=== PATIENT | female | born 1965 | race Caucasian/White ===

== ENCOUNTER 2020-05-15 14:15 | Outpatient (CLI) | payer OTHER, SELFPAY ==
[2020-05-15 14:30] LABS: Basophils Absolute Auto 0.1 K/mm3 (0.0-0.1); Basophils Percent Auto 1.1 % (0.2-1.2); Eosinophils Absolute Auto 0.2 K/mm3 (0-0.3); Eosinophils Percent Auto 2.4 % (0-4.4); Hematocrit 38.3 % (37.0-47.0); Hemoglobin 12.9 g/dL (12.0-15.0); Immature Granulocyte Absolute 0.01 K/mm3 (0.00-0.031); Immature Granulocyte Percent A 0.1 % (0-0.5); Lymphocytes Absolute Auto 2.51 K/mm3 (0.9-3.2); Lymphocytes Percent Auto 35.9 % (18.3-44.2); Mean Corpuscular HGB Conc 33.7 g/dl (32-36); Mean Corpuscular Hemoglobin 31.9 pg (26-34); Mean Corpuscular Volume 94.8 fl (80-100); Mean Platelet Volume 9.1 fl (7.4-10.4); Monocytes Absolute Auto 0.6 K/mm3 (0.1-0.6); Monocytes Percent Auto 8.7 % (2.6-8.5); Neutrophils Absolute Auto 3.6 K/mm3 (1.3-6.7); Neutrophils Percent Auto 51.8 % (45.5-73.1); Platelet Count Result 239 k/mm3 (150-375); Red Blood Count 4.04 M/mm3 (4.2-5.4); Red Cell Distribution Width 12.7 % (11.5-14.5)
[2020-05-15 17:21] LABS: Iron 119 ug/dL (37-170)
[2020-05-15 17:28] LABS: Alanine Aminotransferase 15 U/L (4-35); Albumin Level 4.5 g/dL (3.5-5.1); Alkaline Phosphatase 79 U/L (38-126); Aspartate Amino Transferase 27 U/L (14-36); Bilirubin,Total 0.5 mg/dL (0.2-1.3); Blood Urea Nitrogen 14 mg/dL (7-17); Calcium 9.3 mg/dL (8.4-10.2); Carbon Dioxide 23 mmol/L (22-30); Chloride 107 mmol/L (98-107); Estimated Glomerular Filt Rate > 60; Glucose 114 mg/dL (65-105); Potassium 3.5 mmol/L (3.4-5.0); Sodium 137 mmol/L (137-145)
[2020-05-15 17:29] LABS: Erythrocyte Sedimentation Rate 17 mm/hr (0-20)
[2020-05-15 17:30] LABS: Percent Iron Saturation 46 % (20-50)
== END 2020-05-15 14:16 | disposition home or self-care (01) ==
PROVIDERS: PCP Family Medicine; Visit Provider Internal Medicine Hematology & Oncology
DX: R53.83 Other fatigue (principal); R79.89 Other specified abnormal findings of blood chemistry
CPT/HCPCS: 36415; 80053; 82607; 82728; 83540; 83550; 85025; 85652; 86140

== ENCOUNTER 2020-08-21 10:50 | Outpatient (CLI) | payer OTHER, SELFPAY ==
[2020-08-21 11:15] LABS: Basophils Absolute Auto 0.1 K/mm3 (0.0-0.1); Basophils Percent Auto 1.5 % (0.2-1.2); Eosinophils Absolute Auto 0.2 K/mm3 (0-0.3); Eosinophils Percent Auto 2.8 % (0-4.4); Hematocrit 40.2 % (37.0-47.0); Hemoglobin 13.7 g/dL (12.0-15.0); Immature Granulocyte Absolute 0.01 K/mm3 (0.00-0.031); Immature Granulocyte Percent A 0.2 % (0-0.5); Lymphocytes Absolute Auto 2.73 K/mm3 (0.9-3.2); Lymphocytes Percent Auto 50.9 % (18.3-44.2); Mean Corpuscular HGB Conc 34.1 g/dl (32-36); Mean Corpuscular Hemoglobin 31.9 pg (26-34); Mean Corpuscular Volume 93.5 fl (80-100); Mean Platelet Volume 8.8 fl (7.4-10.4); Monocytes Absolute Auto 0.5 K/mm3 (0.1-0.6); Neutrophils Absolute Auto 1.9 K/mm3 (1.3-6.7); Neutrophils Percent Auto 35.6 % (45.5-73.1); Platelet Count Result 266 k/mm3 (150-375); Red Cell Distribution Width 12.3 % (11.5-14.5); White Blood Count 5.4 K/mm3 (4.5-10.0)
[2020-08-21 11:19] LABS: Blood Urea Nitrogen 12 mg/dL (8-26); Carbon Dioxide 25 mmol/L (22-30); Chloride 103 mmol/L (98-109); Estimated Glomerular Filt Rate > 60; Glucose 96 mg/dL (70-105); Potassium 4.3 mmol/L (3.5-4.9); Sodium 140 mmol/L (138-146)
[2020-08-21 11:20] LABS: Atypical Lymphocytes Present; Platelet Estimate Adequate (Adequate)
[2020-08-21 16:48] LABS: Alanine Aminotransferase 14 U/L (4-35); Albumin Level 4.3 g/dL (3.5-5.1); Alkaline Phosphatase 78 U/L (38-126); Anion Gap 7 mmol/L (8-16); Aspartate Amino Transferase 22 U/L (14-36); Bilirubin,Total 0.2 mg/dL (0.2-1.3); Blood Urea Nitrogen 12 mg/dL (7-17); Calcium 9.4 mg/dL (8.4-10.2); Carbon Dioxide 26 mmol/L (22-30); Chloride 105 mmol/L (98-107); Estimated Glomerular Filt Rate > 60; Glucose 99 mg/dL (65-105); Potassium 4.5 mmol/L (3.4-5.0); Sodium 138 mmol/L (137-145)
[2020-08-21 18:20] LABS: Folic Acid 14.6 ng/mL (2.76->20)
== END 2020-08-21 10:51 | disposition home or self-care (01) ==
PROVIDERS: PCP Family Medicine; Visit Provider Internal Medicine Hematology & Oncology
DX: R53.82 Chronic fatigue, unspecified (principal); R79.89 Other specified abnormal findings of blood chemistry
CPT/HCPCS: 36415; 80048; 80053; 82607; 82746; 85025

== ENCOUNTER 2020-09-04 07:39 | Outpatient (CLI) | payer OTHER, SELFPAY ==
--- NOTE | 2020-09-04 | ECHO_ITS ---
Patient Info Name: Keturah Nickerson Age: 55 years : 1965 Gender: Female Ht: 63 in Wt: 130 lbs BSA: 1.63 m2 HR: 61 bpm BP: 158 / 101 mmHg Heart Rhythm: Sinus Rhythm Technical Quality: Good Exam Date: 09/04/2020 9:08 AM Exam Location: [facility] Patient Status: Outpatient Admit Date: 09/04/2020 Staff Ordering Physician: Montse Torre Air Conditioning Unit Assembler: Lianet iGron RDCS Attending Provider: Montse Torre Referring Physician: Nicho ARNETT; Exam Type: CA echo doppler color flow Study Info Indications - chronic fatiquie Complete two-dimensional, color flow and Doppler transthoracic echocardiogram is performed. Strain analysis performed. Summary 1. Complete two-dimensional, color flow and Doppler transthoracic echocardiogram is performed. 2. Strain analysis performed. 3. Left ventricular chamber dimension is normal. 4. Left ventricular systolic function is normal, estimated at 60-65%. 5. There is no increased left ventricular wall thickness. 6. The left ventricular diastolic function is normal. 7. Global longitudinal strain is normal at -20 %. 8. There is mild tricuspid valve regurgitation. Left Ventricle Left ventricular chamber dimension is normal. Left ventricular systolic function is normal, estimated at 60-65%. There is no increased left ventricular wall thickness. The left ventricular diastolic function is normal. Global longitudinal strain is normal at -20 %. Right Ventricle Right ventricular chamber dimension is normal. Right ventricular systolic function is normal. Left Atria Left atrial chamber dimension is normal. Right Atria Right atrial chamber dimension is normal. Atrial Septum Intact interatrial septum visualized by color flow imaging. Aortic Valve The aortic valve is not well visualized. There is no aortic valve sclerosis. There is no aortic valve stenosis. There is trace aortic valve regurgitation. Pulmonic Valve The pulmonic valve is normal. There is no pulmonic valve stenosis. There is trace pulmonic regurgitation. Mitral Valve The mitral valve has normal leaflets. There is no mitral valve stenosis. There is trace mitral valve regurgitation. Tricuspid Valve The tricuspid valve leaflets are normal. There is no significant tricuspid valve stenosis. There is mild tricuspid valve regurgitation. No pulmonary hypertension, estimated pulmonary arterial systolic pressure is 28 mmHg. Pericardium/Pleural The pericardium appears normal. There is no pericardial effusion. Aorta The aortic root size at the sinus of Valsalva is normal. Left Ventricular Outflow Tract Name Value Normal LVOT 2D LVOT Diameter 2.0 cm LVOT Doppler LVOT Peak Gradient 5 mmHg LVOT Mean Gradient 2 mmHg LVOT VTI 22 cm LVOT VTI/AV VTI Ratio 1.1 LVOT Stroke Volume 70 ml LVOT CO 13.7 l/min LVOT CI 8.4 l/min/m2
--- NOTE | ~2020-09-04 | US_ITS ---
EXAMINATION: US soft tissue head and neck DATE: 09/04/2020 08:53 INDICATION: Cervical lymphadenopathy. Thyroid nodules. TECHNIQUE: Multiple ultrasound images of the thyroid were obtained. COMPARISON: Thyroid ultrasound 03/22/2019 FINDINGS: The right thyroid lobe measures 4.7 x 1.4 x 1.6 cm. The left thyroid lobe measures 4.3 x 2.0 x 1.5 c m. There are 2 mm and 4 mm nodules in the thyroid, likely not clinically significant. Normal submand ibular lymph nodes are noted. There is no abnormal mass or lymphadenopathy in the posterior neck in t he patient's area of concern. IMPRESSION: 1. No abnormal mass or lymphadenopathy in posterior neck in the patient's area of concern. 2. Small thyroid nodules, likely not clinically significant. No follow-up is needed. Reviewed, dictated and finalized at location A. ISHING EDITOR IMPRESSION: 1. No abnormal mass or lymphadenopathy in posterior neck in the patient's area of concern. 2. Small thyroid nodules, likely not clinically significant. No follow-up is ne eded.
== END 2020-09-04 07:40 | disposition home or self-care (01) ==
LOC: ANHIMG 07:50
PROVIDERS: PCP Family Medicine; Visit Provider Nurse Practitioner Adult Health
DX: R53.82 Chronic fatigue, unspecified (principal); R59.0 Localized enlarged lymph nodes; E04.2 Nontoxic multinodular goiter
CPT/HCPCS: 76536; 93306

== ENCOUNTER 2020-11-07 13:40 | Emergency (ER) | payer OTHER, SELFPAY ==
[2020-11-07 13:56] VITALS: BP 148/95; PULSE 74; RESP 16; TEMP 36.5; O2SAT 100
--- NOTE | 2020-11-07 14:12 | ED.FEMALEGU ---
HPI - Female Genitourinary General Chief complaint: Urogenital-Female Stated complaint: POS UTI symptoms Time Seen by Provider: 11/07/20 14:12 Source: patient and RN notes reviewed Mode of arrival: ambulatory Limitations: no limitations History of Present Illness HPI Narrative: 55-year-old female who presents to [facility] with complaints of about 1 week duration of urinary burning, frequency, urgency, dribbling of urine with foul odor. Patient states that she has frequent urinary tract infections and usually takes Macrobid for her infections which is usually effective. Patient states that she usually shows some blood in her urine when she has UTI and she has seen urologist in the past due to having blood in her urine. Patient denies any nausea or vomiting or any vaginal drainage or itching in perineal area, denies any known fevers or chills. MD elicited complaint: dysuria, UTI and flank pain Pertinent past history: recurrent UTIs and hysterectomy Onset (ago): week(s) (1) Location of symptoms: urethra and flank (bilateral) Female Urogenital Radiation: L Flank and R Flank Severity scale (1-10): 4 Quality of pain: cramping and aching Consistency: constant Vaginal discharge: none Vaginal bleeding: none Urinary symptoms: Dysuria, Hematuria and Foul Smelling Urine Exacerbating factors: urination Relieving factors: none Associated symptoms: back pain (bilateral flank pain) Treatment prior to arrival: none Sexual activity: Yes Possible : postmenopausal Related Data Home Medications Medication Instructions Recorded Confirmed celecoxib mg 11/07/20 citalopram mg 11/07/20 hydrocodone-acetaminophen 11/07/20 prednisone 11/07/20 Allergies Allergy/AdvReac Type Severity Reaction Status Date / Time No Known Allergies Allergy Verified 11/07/20 14:09 Review of Systems Review of Systems: Narrative: CONSTITUTIONAL: Denies fever, chills, or sweats. EYES: Denies visual changes, redness, or discharge. ENT: Denies rhinorrhea, congestion, sore throat, or otalgia. CARDIOVASCULAR: Denies chest pain, palpitations, or edema. RESPIRATORY: Denies cough or dyspnea. GASTROINTESTINAL: Denies abdominal pain, nausea, vomiting, or diarrhea. GENITOURINARY: Positive dysuria or hematuria. and flank pain, frequency and urgency SKIN: Denies rash or itching. MUSCULOSKELETAL: Denies back pain, joint pain, or myalgia. NEUROLOGIC: Denies headache, numbness, or weakness. PSYCHIATRIC: Denies anxiety or depression. All systems reviewed & are unremarkable except as noted in HPI and below PMFSH Past Medical History Medical History (Updated 11/07/20 @ 15:16 by Lashay Mathews NP) ADD (attention deficit disorder) Adrenal insufficiency Rheumatoid arthritis UTI (urinary tract infection) Surgical History Surgical History (Updated 11/07/20 @ 14:30 by Lashay Mathews NP) History of arthroscopic surgery of shoulder left History of hysterectomy Social History Social History (Updated 11/07/20 @ 14:31 by Lashay Mathews NP) Smoking packs per day: 1 Smoking cigarettes per day: 20.0 Years smoked: 40 Smoking pack-years: 40.00 Smoking status: Current every day smoker Tobacco type: cigarettes Alcohol intake: current Substance use: current Substance use type: opiates Last use: RA pain Living arrangements: with family Gender identity (if verbalized by the patient): Female Comments At time of signature, agree with nursing past medical, surgical, social history. There is no relevant family history pertinent to the presenting complaint Exam Narrative: Exam Narrative: GENERAL: Well-appearing, well-nourished, and in no acute distress. HEAD: Normocephalic, atraumatic. EYES: PERRLA and EOMI. ENT: Nares clear, no rhinorrhea or epistaxis. Mucous membranes moist.TM's normal with good light reflex, throat pink with no exudates or lesions no tonsil enlargement NECK: Supple. no lymphadenopathy CHEST: Clear to auscultation
--- NOTE | 2020-11-07 14:45 | PC.NURSE ---
UPON FURTHER EVALUATION, PT STATES SHE HAS ADRENAL INSUFFICIENCY,NOT RENAL.
== END 2020-11-07 14:38 | disposition home or self-care (01) ==
PROVIDERS: Emergency Provider Registered Nurse; PCP Family Medicine
DX: N39.0 Urinary tract infection, site not specified (principal); F17.210 Nicotine dependence, cigarettes, uncomplicated; M06.9 Rheumatoid arthritis, unspecified
CPT/HCPCS: 81003; 87086; 99213; G0463

== ENCOUNTER 2021-07-13 01:53 | Day surgery (SDC) | payer OTHER, SELFPAY ==
[2021-07-05 09:32] VITALS: BMI 23.9
--- NOTE | 2021-07-12 11:29 | PM.HPGS ---
History of Present Illness History of Present Illness Consent: Risks, benefits, and alternatives have been discussed and questions answered. Patient agrees to proceed with procedure. Chief complaint: rectal pain and constipation Narrative: Keturah Nickerson is a 56 year old female who has had a change in bowel habits. Review of Systems Review of Systems: All systems reviewed & are unremarkable except as noted in HPI and below PMFSH Past Medical History Medical History ADD (attention deficit disorder) Adrenal insufficiency Rheumatoid arthritis UTI (urinary tract infection) Surgical History Surgical History History of arthroscopic surgery of shoulder left History of hysterectomy Social History Social History Smoking packs per day: 1.5 Smoking cigarettes per day: 30.0 Years smoked: 30 Smoking pack-years: 45.00 Smoking status: Current every day smoker Substance use type: does not use Meds Home Medications and Allergies Home Medications Medication Instructions Recorded Confirmed Type adalimumab [Humira(CF) Pen] 40 mg SUBCUT WEEKLY 07/05/21 07/05/21 History alendronate [Fosamax] 70 mg PO DAILY 07/05/21 07/05/21 History dextroamphetamine-amphetamine 30 mg PO DAILY 07/05/21 07/05/21 History [Adderall] hydrocodone-acetaminophen 7.5 - 325 tablet PO PRN 07/05/21 07/05/21 History Allergies Allergy/AdvReac Type Severity Reaction Status Date / Time No Known Allergies Allergy Verified 07/13/21 10:01 Exam Resp: Auscultation: clear to auscultation bilaterally Cardio: Rate: regular rate Rhythm: regular rhythm GI: GI Palp: Yes Soft to palpation and No Tenderness to palpation present (GI) Assessment and Plan Assessment and plan (1) Colon cancer screening: Code(s): Z12.11 - Encounter for screening for malignant neoplasm of colon Status: Acute Assessment and Plan: Colonoscopy with possible biopsy or polypectomy or cautery or injection of substances.
[2021-07-13 10:02] VITALS: BP 151/101; PULSE 76; RESP 18; TEMP 36.5; O2SAT 100; BMI 22.8
--- NOTE | 2021-07-13 10:05 | WPDANESEPPF ---
Anes - Initial Pre Proc Eval Procedure: Operation Date: 07/13/21 10:45 Proposed Procedures p Colonoscopy - Bar Padgett MD Date/Time: 07/13/21 10:05 Surgeon: Bar Padgett MD Pre Op Diagnosis: rectal pain and constipation Patient Data Age: 56 Gender: F Height: 1.6 m Weight: 58.4 kg Last Vital Signs Temp 36.5 C 07/13/21 10:02 Pulse 76 07/13/21 10:02 Resp 18 07/13/21 10:02 BP 151/101 H 07/13/21 10:02 Pulse Ox 100 07/13/21 10:02 Allergies Allergy/AdvReac Type Severity Reaction Status Date / Time No Known Allergies Allergy Verified 07/13/21 10:01 Home Medications Medication Instructions Recorded Confirmed Type adalimumab [Humira(CF) Pen] 40 mg SUBCUT WEEKLY 07/05/21 07/05/21 History alendronate [Fosamax] 70 mg PO DAILY 07/05/21 07/05/21 History dextroamphetamine-amphetamine 30 mg PO DAILY 07/05/21 07/05/21 History [Adderall] hydrocodone-acetaminophen 7.5 - 325 tablet PO PRN 07/05/21 07/05/21 History Patient hx anesthesia problems: none Family hx anesthesia problems: none PMFSH Past Medical History Medical History ADD (attention deficit disorder) Adrenal insufficiency Rheumatoid arthritis UTI (urinary tract infection) Surgical History Surgical History History of arthroscopic surgery of shoulder left History of hysterectomy Social History Social History Smoking packs per day: 1.5 Smoking cigarettes per day: 30.0 Years smoked: 30 Smoking pack-years: 45.00 Smoking status: Current every day smoker Substance use type: does not use Anes - Eval Final PreProcedure Day of Procedure 07/13/21 10:05 Patient weight: normal Heart: regular rate and rhythm Lungs: clear to auscultation Airway: Mallampati scale class II and other (dentures) Neurological: alert and oriented Last oral intake: >/= 8 hours ASA classification: III Emergent: no Anesthetic plan: proceed Anesthesia type and monitoring: general GIVS and standard monitoring Informed Consent: The patient's anesthetic plan and its attendant risks and benefits were discussed with the patient/family/POA. Questions were solicited and answers provided to the satisfaction of the patient/family/POA.
[2021-07-13] MEDS: LACTATED RINGERS 1,000 ML 150 ML IV CONT (10:09)
--- NOTE | 2021-07-13 11:09 | PM.HPGS ---
History of Present Illness History of Present Illness Consent: Risks, benefits, and alternatives have been discussed and questions answered. Patient agrees to proceed with procedure. Chief complaint: rectal pain and constipation Narrative: Keturah Nickerson is a 56 year old female With a change in bowel habits. she is here for colon cancer screening She also has had blood her stools recently Review of Systems Review of Systems: All systems reviewed & are unremarkable except as noted in HPI and below PMFSH Past Medical History Medical History ADD (attention deficit disorder) Adrenal insufficiency Rheumatoid arthritis UTI (urinary tract infection) Surgical History Surgical History History of arthroscopic surgery of shoulder left History of hysterectomy Social History Social History Smoking packs per day: 1.5 Smoking cigarettes per day: 30.0 Years smoked: 30 Smoking pack-years: 45.00 Smoking status: Current every day smoker Substance use type: does not use Meds Home Medications and Allergies Home Medications Medication Instructions Recorded Confirmed Type adalimumab [Humira(CF) Pen] 40 mg SUBCUT WEEKLY 07/05/21 07/05/21 History alendronate [Fosamax] 70 mg PO DAILY 07/05/21 07/05/21 History dextroamphetamine-amphetamine 30 mg PO DAILY 07/05/21 07/05/21 History [Adderall] hydrocodone-acetaminophen 7.5 - 325 tablet PO PRN 07/05/21 07/05/21 History Allergies Allergy/AdvReac Type Severity Reaction Status Date / Time No Known Allergies Allergy Verified 07/13/21 10:01 Vital Signs Vital Signs - 24 hr 07/13/21 10:02 Temperature 36.5 C Pulse Rate 76 Respiratory Rate 18 Blood Pressure 151/101 H Pulse Oximetry 100 Exam Resp: Auscultation: clear to auscultation bilaterally Cardio: Rate: regular rate Rhythm: regular rhythm GI: GI Palp: Yes Soft to palpation and No Tenderness to palpation present (GI) Assessment and Plan Assessment and plan (1) Colon cancer screening: Code(s): Z12.11 - Encounter for screening for malignant neoplasm of colon Status: Acute Assessment and Plan: Colonoscopy with possible biopsy or polypectomy or cautery or injection of substances.
[2021-07-13 11:27] VITALS: BP 134/90; PULSE 76; RESP 20; O2SAT 99
[2021-07-13 11:37] VITALS: BP 131/92; PULSE 69; RESP 18; O2SAT 95
[2021-07-13 11:47] VITALS: BP 124/88; PULSE 60; RESP 20; O2SAT 98
== END 2021-07-13 12:13 | disposition home or self-care (01) ==
PROVIDERS: PCP Family Medicine; Visit Provider Internal Medicine Gastroenterology
PROC: 0DJD8ZZ Inspection of Lower Intestinal Tract, Via Natural or Artificial Opening Endoscopic (ICD-10-PCS; CPT 45378; principal; 2021-07-13 10:45)
DX: Z12.11 Encounter for screening for malignant neoplasm of colon (principal); K59.00 Constipation, unspecified; K62.89 Other specified diseases of anus and rectum; K57.30 Diverticulosis of large intestine without perforation or abscess without bleeding; F98.8 Other specified behavioral and emotional disorders with onset usually occurring in childhood and adolescence; E27.40 Unspecified adrenocortical insufficiency; M06.9 Rheumatoid arthritis, unspecified; F17.210 Nicotine dependence, cigarettes, uncomplicated
CPT/HCPCS: 45378; J7120

== ENCOUNTER 2021-08-19 20:25 | Emergency (ER) | payer OTHER, SELFPAY ==
--- NOTE | ~2021-08-19 | XR_ITS ---
EXAMINATION: XR ankle LT min 3V DATE: 08/19/2021 21:41 INDICATION: Left ankle injury and pain. TECHNIQUE: 4 views of left ankle were obtained. COMPARISON: Left foot radiograph 04/17/2015 FINDINGS: Bone alignment is normal. No fracture. Joint spaces are well maintained. There is an enthes ophyte at posterior aspect of calcaneal tuberosity. IMPRESSION: 1. No fracture. Reviewed, dictated and finalized at location A. IMPRESSION: 1. No fracture.
[2021-08-19 20:46] VITALS: BP 133/93; PULSE 93; RESP 16; TEMP 36.8; O2SAT 98
--- NOTE | 2021-08-19 21:19 | PC.NURSE ---
pt reports at approx. 7pm she 'got tangled up in the dog leash' and twisted left ankle, causing pain worse with weight bearing. edema noted to left lateral ankle, along with scabbed abrasions. no s/s of infection. left leg elevated and ice applied.
--- NOTE | 2021-08-19 22:16 | ED.LOWEXIN ---
HPI - Extremity Injury (Lower) General Chief Complaint: Extremity Injury, Lower Stated Complaint: Left ankle injury Time Seen by Provider: 08/19/21 21:12 Source: patient Mode of arrival: ambulatory Limitations: no limitations History of Present Illness HPI Narrative: This is a 56 year old female who presents for evaluation of left ankle pain. Her left ankle got caught in her dog's leash and she rolled her ankle. She has pain and swelling to her left lateral ankle. She is able to walk but she has pain with bearing weight. She denies hitting head or LOC. Related Data Home Medications Medication Instructions Recorded Confirmed dextroamphetamine-amphetamine 11/04/19 dextroamphetamine-amphetamine 11/04/19 ergocalciferol (vitamin D2) 11/04/19 estradiol mg 11/04/19 hydrocodone-acetaminophen 11/04/19 lisinopril 11/04/19 celecoxib mg 11/07/20 citalopram mg 11/07/20 hydrocodone-acetaminophen 11/07/20 prednisone 11/07/20 Allergies Allergy/AdvReac Type Severity Reaction Status Date / Time No Known Allergies Allergy Verified 08/19/21 21:18 Review of Systems Review of Systems: 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 Rheumatoid arthritis Rheumatoid arthritis UTI (urinary tract infection) UTI (urinary tract infection) Surgical History Surgical History History of arthroscopic surgery of shoulder left History of arthroscopic surgery of shoulder left History of hysterectomy History of hysterectomy No pertinent past surgical history Social History Social History (System 11/15/20 @ 10:22 by Nora Villareal) Smoking packs per day: 1 Smoking cigarettes per day: 20.0 Years smoked: 40 Smoking pack-years: 40.00 Smoking status: Current every day smoker Tobacco type: cigarettes Alcohol intake: current Substance use: current Substance use type: opiates Last use: RA pain Gender identity (if verbalized by the patient): Female Exam Const: General: no acute distress and alert Orientation/consciousness: patient oriented x3 HENMT: Head: normocephalic and atraumatic Face and sinus: face symmetric Eyes: EOM: EOMs intact bilaterally Resp: Effort & Inspection: normal respiratory effort Skin: General skin exam: normal color Extrem: General: no pedal edema Other: left ankle- mild swelling along lateral malleolus, no deformity, no redness, no knee tenderness Psych: Mental Status: mental status grossly normal Affect: normal affect Course Reevaluation(s) Reevaluation #1: I discussed wiht patient xray preliminary read of no fracture. She understands it will be reviewed by radiology tomorrow and if fracture wound she will receive call. She will wear walking boot at home for comfort. Date: 08/19/21 Time: 22:18 Vital Signs Vital signs: Vital Signs Temperature 98.2 F 08/19/21 20:46 Pulse Rate 93 08/19/21 20:46 Respiratory Rate 16 08/19/21 20:46 Blood Pressure 133/93 H 08/19/21 20:46 Pulse Oximetry 98 08/19/21 20:46 Temperature 98.1 F 08/19/21 22:31 Pulse Rate 74 08/19/21 22:31 Respiratory Rate 20 08/19/21 22:31 Blood Pressure 137/96 H 08/19/21 22:31 Pulse Oximetry 98 08/19/21 22:31 MDM - Extremity Injury (Lower) Imaging Data Attestation: I personally reviewed and interpreted this imaging study as follows: My impression: left ankle xray - no fracture Discharge Plan Discharge Clinical Impression: Left ankle sprain Patient Disposition: Home, Self-Care Condition: Stable Instructions: Antibiotic Form, Ankle Sprain (ED) Additional Instructions: wear boot or ankle b
[2021-08-19 22:31] VITALS: BP 137/96; PULSE 74; RESP 20; TEMP 36.7; O2SAT 98
== END 2021-08-19 22:34 | disposition home or self-care (01) ==
PROVIDERS: Emergency Provider General Practice; PCP Family Medicine
DX: S93.402A Sprain of unspecified ligament of left ankle, initial encounter (principal); F17.210 Nicotine dependence, cigarettes, uncomplicated; W01.0XXA Fall on same level from slipping, tripping and stumbling without subsequent striking against object, initial encounter
CPT/HCPCS: 73610; 99283

== ENCOUNTER 2021-08-24 12:44 | Emergency (ER) | payer OTHER, SELFPAY ==
--- NOTE | ~2021-08-24 | XR_ITS ---
EXAMINATION: XR forearm LT 2V DATE: 08/24/2021 12:59 INDICATION: Possible foreign body, specifically a piece of wood, at the left forearm. TECHNIQUE: AP an lateral views of the left forearm were obtained. COMPARISON: none FINDINGS: Unfolded paper clip projects towards the radial aspect of the distal forearm to ronnie the site of conc clari. There is mild soft tissue swelling with subcutaneous edema at this location. No evident radiopaq ue or radiolucent foreign bodies identified. Bone alignment is normal. No fracture. Moderate to sever e osteoarthritis at the first carpometacarpal joint. Mild osteoarthritis at the first interphalangeal joint. IMPRESSION: 1. No evident radiopaque or radiolucent foreign body at the region of concern. Of note MATERIAL such as would demonstrate similar density to the soft tissues and can be occult on plain radiographs. If t here is continued clinical concern could consider ultrasound for further evaluation. Reviewed, dictated and finalized at location A. IMPRESSION: 1. No evident radiopaque or radiolucent foreign body at the region of concern. Of note MATERIAL such as would demonstrate similar density to the soft tissues and can be occult on plain radiographs. If there is continued clinical concern could consider ultrasound for further evaluation.
[2021-08-24 12:52] VITALS: BP 157/95; PULSE 79; RESP 16; TEMP 37; O2SAT 100
--- NOTE | 2021-08-24 13:05 | ED.UPPEXIN ---
HPI - Extremity Injury (Upper) General Chief Complaint: Extremity Injury, Upper Stated Complaint: L ARM INJURY Time Seen by Provider: 08/24/21 13:05 Source: patient Mode of arrival: ambulatory Limitations: no limitations History of Present Illness HPI narrative: Keturah Nickerson is a 56 yo female with a PMH of ADHD, RA, failure to [facility] due to concern for a splinter in her L forearm after allowing both yesterday into a truck. States a piece of wood got stuck in her arm and she pulled out but feels like there is still something in her forearm. She is used for to try and get out but says when she turns her hand certainly she can feel something there Related Data Home Medications Medication Instructions Recorded Confirmed Humira(CF) Pen 40 mg SUBCUT WEEKLY 07/05/21 08/24/21 dextroamphetamine-amphetamine 30 mg PO DAILY 07/05/21 08/24/21 [Adderall] hydrocodone-acetaminophen 7.5 - 325 tablet PO PRN 07/05/21 08/24/21 Allergies Allergy/AdvReac Type Severity Reaction Status Date / Time No Known Allergies Allergy Verified 08/24/21 12:55 Review of Systems Review of Systems: CONSTITUTIONAL: Denies fever, chills, sweats. EYES: Denies visual changes, redness, discharge. ENT: Denies rhinorrhea, congestion, sore throat, otalgia. CARDIOVASCULAR: Denies chest pain, palpitations, edema. RESPIRATORY: Denies dyspnea, wheezing, cough GASTROINTESTINAL: Denies abdominal pain, nausea, vomiting, diarrhea. GENITOURINARY: Denies dysuria, hematuria, abnormal discharge SKIN: Denies rash or itching. NEUROLOGIC: Denies numbness, or focal weakness. PSYCHIATRIC: Denies anxiety or depression. Left forearm foreign object PMFSH Past Medical History Medical History ADD (attention deficit disorder) Adrenal insufficiency Rheumatoid arthritis UTI (urinary tract infection) Surgical History Surgical History History of arthroscopic surgery of shoulder left History of hysterectomy Social History Social History Smoking packs per day: 1.5 Smoking cigarettes per day: 30.0 Years smoked: 30 Smoking pack-years: 45.00 Smoking status: Current every day smoker Substance use type: does not use Comments At time of signature, I agree with nursing past medical, surgical, social and family history. There is no relevant family history pertinent to the presenting complaint. Exam Narrative: GENERAL: This is a well-nourished, well-developed patient, in mild distress. HEAD: normocephalic, atraumatic. EYES: PERRL. Sclera clear/white. Vision is grossly intact. EARS: External ears normal, auditory canals clear and without drainage, TMs normal without perforation. Hearing grossly intact. NOSE: External nose normal without nasal discharge, nares without redness, no rhinorrhea. THROAT: Mucous membranes moist, posterior pharynx NECK: Neck supple, non-tender CARDIOVASCULAR: Regular rate and rhythm without murmurs, gallops, or rubs. RESPIRATORY: Clear to auscultation. Breath sounds equal bilaterally. No wheezes, rales, or rhonchi. GASTROINTESTINAL: Abdomen soft, non-tender, SKIN: warm, intact with small scabbed area that pt states feels like something in there- mid L forearm on dorsal side NEURO: awake, alert, and oriented to person, place and time. There were no obvious focal neurologic abnormalities. Steady gait EXTREMITIES: Normal range of motion. BACK: Nontender without deformity Course Course Emergency Course: [facility] of a small splinter in left forearm after loading with a truck yesterday X-ray note results no evidence of radiopaque or red radiolucent foreign body at the region of concern left forearm however hard to differentiate with x-ray superficial, Small 0.5 cm scabbed area opened with a needle after injection of 1 cc of lidocaine and explore
[2021-08-24] MEDS: TETANUS,DIPHTHERIA,AC PERTUSSIS ADULT (0.5 ML) BOOSTRIX IM (13:51)
== END 2021-08-24 13:45 | disposition home or self-care (01) ==
PROVIDERS: Emergency Provider Nurse Practitioner; PCP Family Medicine
DX: S59.912A Unspecified injury of left forearm, initial encounter (principal); W45.8XXA Other foreign body or object entering through skin, initial encounter; Z23 Encounter for immunization; M06.9 Rheumatoid arthritis, unspecified; F17.210 Nicotine dependence, cigarettes, uncomplicated; F90.9 Attention-deficit hyperactivity disorder, unspecified type
CPT/HCPCS: 73090; 90471; 90715; 99213; G0463

== ENCOUNTER 2021-09-07 10:41 | Emergency (ER) | payer OTHER, SELFPAY ==
--- NOTE | ~2021-09-07 | XR_ITS ---
EXAMINATION: XR abdomen/kub 1V INDICATION: Hematuria and flank pain TECHNIQUE: Supine view the abdomen is obtained. COMPARISON: 09/03/2004 FINDINGS: Bowel contents project over the kidneys limiting sensitivity for renal stones although none are seen. No stones are identified along the expected courses in the urinary bladder. There are surg ical changes in the pelvis. The bowel gas pattern is normal. There are no dilated loops of bowel. IMPRESSION: 1. No urolithiasis identified. Reviewed, dictated and finalized at location B.
[2021-09-07 10:49] VITALS: BP 159/104; PULSE 76; RESP 16; TEMP 36.8; O2SAT 100
[2021-09-07 10:54] VITALS: BP 159/104; PULSE 76; RESP 16; TEMP 36.8; O2SAT 100
--- NOTE | 2021-09-07 11:02 | ED.BACK ---
HPI - Back Pain/Injury General Chief Complaint: Back Pain/Injury Stated Complaint: Back pain Time Seen by Provider: 09/07/21 10:54 Source: patient and RN notes reviewed Mode of arrival: ambulatory Limitations: no limitations History of Present Illness HPI Narrative: 56-year-old female with history of RA, fibromyalgia, [place] syndrome, ADD presents with concern for bilateral upper back pain. She reports the pain is near the base of her lungs. She denies any recent upper respiratory infections, coughs. She denies injury or trauma. She denies bruising, rash, redness, swelling. She denies any relieving or exacerbating factors. She reports decreased urination today. She reports a week ago she had pink-tinged urine. She denies any weakness in any extremity, loss of bowel or bladder function, abdominal pain. MD elicited complaint: back pain Related Data Home Medications Medication Instructions Recorded Confirmed dextroamphetamine-amphetamine 20 mg DAILY 11/04/19 09/07/21 hydrocodone-acetaminophen 1 tablet TID 11/04/19 09/07/21 lisinopril 10 mg DAILY 11/04/19 09/07/21 celecoxib 100 mg DAILY 11/07/20 09/07/21 hydrochlorothiazide 12.5 mg DAILY 09/07/21 09/07/21 hydroxychloroquine 200 mg PO DAILY 09/07/21 09/07/21 prednisone 5 mg DAILY 09/07/21 09/07/21 Allergies Allergy/AdvReac Type Severity Reaction Status Date / Time No Known Allergies Allergy Verified 08/19/21 21:18 Review of Systems Review of Systems: CONSTITUTIONAL: Denies malaise, chills, sweats, or fever. ENT: Denies rhinorrhea, congestion, sinus pain, otalgia or sore throat. CARDIOVASCULAR: Denies chest pain, palpitations, or edema. RESPIRATORY: Denies cough or dyspnea. GASTROINTESTINAL: Denies abdominal pain, nausea, vomiting. Denies loss of bowel function GENITOURINARY: Reports dysuria, hematuria, decreased urine frequency. Denies loss of bladder function, perianal anesthesia SKIN: Denies rash or itching. MUSCULOSKELETAL: Reports bilateral mid back pain NEUROLOGIC: Denies numbness, weakness, or headache. 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 Rheumatoid arthritis Rheumatoid arthritis UTI (urinary tract infection) UTI (urinary tract infection) Surgical History Surgical History History of arthroscopic surgery of shoulder left History of arthroscopic surgery of shoulder left History of hysterectomy History of hysterectomy No pertinent past surgical history Social History Social History (System 11/15/20 @ 10:22 by Nora Villareal) Smoking packs per day: 1 Smoking cigarettes per day: 20.0 Years smoked: 40 Smoking pack-years: 40.00 Smoking status: Current every day smoker Tobacco type: cigarettes Alcohol intake: current Substance use: current Substance use type: opiates Last use: RA pain Gender identity (if verbalized by the patient): Female Comments At time of signature, agree with nursing past medical, surgical, social and family history. There is no relevant family history pertinent to the presenting complaint Exam Narrative: GENERAL: Well-appearing, well-nourished, and in no acute distress. HEAD: Normocephalic, atraumatic. EYES: PERRLA and EOMI. NECK: Supple. No lymphadenopathy. CHEST: Clear to auscultation. No respiratory distress. HEART: Regular rate and rhythm. Distal pulses palpable and equal, cap refill <3 seconds ABDOMEN: Soft, nontender, nondistended, normal active bowel sounds, no palpable or pulsatile masses. No CVA tenderness MUSCULOSKELETAL: Normal range of motion and strength in all extremities; 5/5 strength with hip flexion and extension, dorsiflexion and exte
== END 2021-09-07 11:50 | disposition short-term general hospital (02) ==
PROVIDERS: Emergency Provider Nurse Practitioner
DX: M54.9 Dorsalgia, unspecified (principal); F98.8 Other specified behavioral and emotional disorders with onset usually occurring in childhood and adolescence; E06.3 Autoimmune thyroiditis; M06.9 Rheumatoid arthritis, unspecified; F17.219 Nicotine dependence, cigarettes, with unspecified nicotine-induced disorders
CPT/HCPCS: 74018; 81003; 99213; G0463

== ENCOUNTER 2021-09-13 10:21 | Emergency (ER) | payer OTHER, SELFPAY ==
[2021-09-13 10:26] VITALS: BP 150/92; PULSE 74; RESP 18; TEMP 36.6; O2SAT 100
--- NOTE | 2021-09-13 10:29 | ECG_ITS ---
Measurements Intervals [place] Rate: 73 P: 53 MT: 151 QRS: 14 QRSD: 98 T: 53 QT: 403 QTc: 446 Interpretive Statements SINUS RHYTHM INCOMPLETE RIGHT BUNDLE BRANCH BLOCK CANNOT RULE OUT SEPTAL INFARCT, AGE INDETERMINATE ABNORMAL ECG Electronically Signed On 09-13-2021 19:28:27 [employer] by Lamine Aguayo D.O.
[2021-09-13 10:46] LABS: Basophils Absolute Auto 0.1 K/mm3 (0.0-0.1); Basophils Percent Auto 1.2 % (0.2-1.2); Eosinophils Absolute Auto 0.2 K/mm3 (0-0.3); Eosinophils Percent Auto 2.3 % (0-4.4); Hematocrit 45.9 % (37.0-47.0); Hemoglobin 15.4 g/dL (12.0-15.0); Immature Granulocyte Absolute 0.01 K/mm3 (0.00-0.031); Immature Granulocyte Percent A 0.2 % (0-0.5); Lymphocytes Absolute Auto 2.67 K/mm3 (0.9-3.2); Lymphocytes Percent Auto 41.1 % (18.3-44.2); Mean Corpuscular HGB Conc 33.6 g/dl (32-36); Mean Corpuscular Hemoglobin 31.9 pg (26-34); Mean Platelet Volume 8.8 fl (7.4-10.4); Monocytes Absolute Auto 0.5 K/mm3 (0.1-0.6); Monocytes Percent Auto 7.2 % (2.6-8.5); Neutrophils Absolute Auto 3.1 K/mm3 (1.3-6.7); Platelet Count Result 301 k/mm3 (150-375); Red Blood Count 4.83 M/mm3 (4.2-5.4); Red Cell Distribution Width 12.7 % (11.5-14.5); White Blood Count 6.5 K/mm3 (4.5-10.0)
[2021-09-13 11:09] LABS: Anion Gap 8 mmol/L (8-16); Blood Urea Nitrogen 17 mg/dL (7-17); Calcium 9.8 mg/dL (8.4-10.2); Carbon Dioxide 27 mmol/L (22-30); Chloride 103 mmol/L (98-107); Estimated CRCL calculation 65 ml/min; Estimated Glomerular Filt Rate > 60; Glucose 111 mg/dL (65-110); Potassium 4.3 mmol/L (3.4-5.0); Sodium 138 mmol/L (137-145)
--- NOTE | 2021-09-13 11:12 | PC.NURSE ---
NO ANSWER WHEN CALLED @[id number]
--- NOTE | 2021-09-13 11:48 | PC.NURSE ---
1148: no answer when called in waiting room
== END 2021-09-13 10:40 | disposition left against medical advice (07) ==
LOC: ANHED 11:56
PROVIDERS: Emergency Provider Emergency Medicine
DX: Z53.21 Procedure and treatment not carried out due to patient leaving prior to being seen by health care provider (principal); R42 Dizziness and giddiness
CPT/HCPCS: 36415; 80048; 85025; 93005; 99199

== ENCOUNTER 2022-03-06 13:24 | Emergency (ER) | payer OTHER, SELFPAY ==
--- NOTE | ~2022-03-06 | XR_ITS ---
EXAMINATION: XR chest 2V DATE: 03/06/2022 13:41 INDICATION: Cough and wheezing TECHNIQUE: PA and lateral views of the chest are obtained. COMPARISON: 10/05/2019 FINDINGS: The lungs are free of acute opacities. There is no pleural effusion or pneumothorax. The ca rdiomediastinal silhouette is normal. There is moderate thoracic spondylosis. IMPRESSION: 1. No acute cardiopulmonary abnormality. Reviewed, dictated and finalized at location A.
--- NOTE | 2022-03-06 13:26 | ED.URI ---
HPI - URI/Sore Throat General Chief Complaint: Upper Respiratory Infection Stated Complaint: COUGH/CONGESTION/BACK PAIN Time Seen by Provider: 03/06/22 13:27 Source: patient and RN notes reviewed History of Present Illness HPI Narrative: Patient is a 57-year-old female who presents the urgent care with complaints of cough, congestion and low back pain. Patient states that her symptoms started approximately 1 week ago and worsened on Friday after she was messing with honey suckle plants. Patient states that she has been taking Mucinex, pseudoephedrine, Zyrtec and nasal spray. Denies of any ill exposures. Denies of fever, chills, nausea or vomiting. Patient has experienced some wheezing and pain with deep breathing at times. No other acute complaints. No acute distress noted. Patient aware of the plan of care. Some parts of this dictation were generated by voice recognition software and may contain typographical and/or grammatical inaccuracies. Related Data Home Medications Medication Instructions Recorded Confirmed dextroamphetamine-amphetamine 20 mg DAILY 11/04/19 03/06/22 celecoxib 100 mg DAILY 11/07/20 03/06/22 adalimumab [Humira(CF) Pen] 40 mg SUBCUT DIRECTED 09/13/21 03/06/22 hydroxychloroquine 200 mg PO DIRECTED 03/06/22 03/06/22 Allergies Allergy/AdvReac Type Severity Reaction Status Date / Time No Known Allergies Allergy Verified 09/13/21 10:31 Review of Systems Review of Systems: CONSTITUTIONAL: Denies fever, chills, or sweats. EYES: Denies visual changes, redness, or discharge. ENT: Reports of postnasal drainage and mild sinus pressure CARDIOVASCULAR: Denies chest pain, palpitations, or edema. RESPIRATORY: Reports of cough, intermittent wheezing and chest congestion GASTROINTESTINAL: Denies abdominal pain, nausea, vomiting, or diarrhea. GENITOURINARY: Denies dysuria or hematuria. SKIN: Denies rash or itching. MUSCULOSKELETAL: Denies back pain, joint pain, or myalgia. NEUROLOGIC: Denies headache, numbness, or weakness. P All other systems reviewed are negative, except as documented in HPI. 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 Rheumatoid arthritis Rheumatoid arthritis UTI (urinary tract infection) UTI (urinary tract infection) Surgical History Surgical History History of arthroscopic surgery of shoulder left History of arthroscopic surgery of shoulder left History of hysterectomy History of hysterectomy No pertinent past surgical history Social History Social History (System 11/15/20 @ 10:22 by Nora Villareal) Smoking packs per day: 1 Smoking cigarettes per day: 20.0 Years smoked: 40 Smoking pack-years: 40.00 Smoking status: Current every day smoker Tobacco type: cigarettes Alcohol intake: current Substance use: current Substance use type: opiates Last use: RA pain Gender identity (if verbalized by the patient): Female Comments At the time of my signature, I reviewed and agree with the nursing past medical, surgical, social, and family history. There is no relevant family history pertinent to the patient complaint. Exam Narrative: GENERAL: This is a well-nourished, well-developed patient, in no apparent distress. HEAD: normocephalic, atraumatic. EYES: PERRL. Sclera clear/white. Vision is grossly intact. EARS: External ears normal, auditory canals clear and without drainage, TMs normal without perforation. Hearing grossly intact. NOSE: External nose normal with no obvious nasal discharge, nares without redness, no rhinorrhea. THROAT: Mucous membranes moist. Mild erythema noted posterior pharynx with moderate postnasal drainage NECK: Neck supple CARDIOVASCULAR: Regular rate and rhythm
[2022-03-06 13:28] VITALS: BP 155/88; PULSE 78; RESP 20; TEMP 36.6; O2SAT 100
== END 2022-03-06 14:04 | disposition home or self-care (01) ==
PROVIDERS: Emergency Provider Nurse Practitioner Family
DX: J40 Bronchitis, not specified as acute or chronic (principal); J30.1 Allergic rhinitis due to pollen; M06.9 Rheumatoid arthritis, unspecified; F17.210 Nicotine dependence, cigarettes, uncomplicated
CPT/HCPCS: 71046; 99213; G0463

== ENCOUNTER 2022-04-25 13:52 | Emergency (ER) | payer OTHER, SELFPAY ==
--- NOTE | 2022-04-25 13:59 | ED.URI ---
HPI - URI/Sore Throat General Chief Complaint: Upper Respiratory Infection Stated Complaint: sinus infection Time Seen by Provider: 04/25/22 14:00 Source: patient, RN notes reviewed and old records reviewed Mode of arrival: ambulatory Limitations: no limitations History of Present Illness HPI Narrative: 57 year old female who presents to [facility] care with complaints of 1.5 weeks duration of cough, sinus congestion and drainage, facial pressure and forehead headache for the past 1.5 weeks. Patient reports that she has been taking Zyrtec D with no resolution in her symptoms. Patient reports that cough is frequent, harsh dry with no acute dyspnea reported. Patient reports that she has no sore throat or known fevers, reports some discomfort and pressure to her right ear. Patient states that she was treated the first part of March with an inhaler and nasal spray but symptoms returned. MD elicited complaint: cough, rhinorrhea, nasal congestion and sinus pain Onset (ago): week(s) (1.5) Treatments prior to arrival: other (zyrtec D) Related Data Home Medications Medication Instructions Recorded Confirmed adalimumab 40 mg/0.4 mL 40 mg subcut WEEKLY 07/05/21 04/25/22 subcutaneous pen kit (Humira(CF) Pen) dextroamphetamine-amphetamine 20 30 mg PO DAILY 07/05/21 04/25/22 mg tablet (Adderall) Allergies Allergy/AdvReac Type Severity Reaction Status Date / Time No Known Allergies Allergy Verified 04/25/22 13:55 Review of Systems Review of Systems: CONSTITUTIONAL: Denies fever, chills, or sweats. EYES: Denies visual changes, redness, or discharge. ENT: Positive for rhinorrhea, congestion, no sore throat,right otalgia. CARDIOVASCULAR: Denies chest pain, palpitations, or edema. RESPIRATORY: Positive cough denies dyspnea. GASTROINTESTINAL: Denies abdominal pain, nausea, vomiting, or diarrhea. GENITOURINARY: Denies dysuria or hematuria. SKIN: Denies rash or itching. MUSCULOSKELETAL: Denies back pain, joint pain, or myalgia. NEUROLOGIC: positive for frontal headache,no numbness, or weakness. PSYCHIATRIC: Positive for history of anxiety or depression. [facility] Past Medical History Medical History (Updated 04/25/22 @ 14:58 by Lashay Mathews NP) ADD (attention deficit disorder) Adrenal insufficiency Rheumatoid arthritis UTI (urinary tract infection) Surgical History Surgical History (Updated 04/25/22 @ 14:58 by Lashay Mathews NP) History of arthroscopic surgery of shoulder left History of hysterectomy History of nasal surgery related to fracture Social History Social History Smoking packs per day: 1.5 Smoking cigarettes per day: 30.0 Years smoked: 30 Smoking pack-years: 45.00 Smoking status: Current every day smoker Substance use type: does not use Comments At time of signature, agree with nursing past medical, surgical, social and family history. There is no relevant family history pertinent to the presenting complaint Exam Narrative: GENERAL: Well-appearing, well-nourished, and in no acute distress. HEAD: Normocephalic, atraumatic. EYES: PERRLA and EOMI. ENT: Nares red with clear rhinorrhea no epistaxis. Mucous membranes moist. TM's normal with dull light reflex noted on left, throat red with no lesions or exudates, NECK: Supple.no lymphadenopathy CHEST: Clear to auscultation. No respiratory distress.SAO2 99% on room air, cough dry and harsh, no tachypnea noted HEART: Regular rate and rhythm. No murmur heard. Normal peripheral pulses. ABDOMEN: Soft, nontender, nondistended, normal active bowel sounds. EXTREMITIES: Normal range of motion. No edema. SKIN: Warm, dry, no rash. NEURO: No focal deficits. Alert and oriented x3. Course Course Level of Care: Express Care Visit Vital Signs Vital signs: Vital Signs Temperature 37.1 C 04/25/22 14:00 Pulse Rate 88 04/25/22 14:00 Respiratory Rate 20 04/25/22 14:00 Blood Pressure 147/89
[2022-04-25 14:00] VITALS: BP 147/89; PULSE 88; RESP 20; TEMP 37.1; O2SAT 99
== END 2022-04-25 14:27 | disposition home or self-care (01) ==
PROVIDERS: Emergency Provider Registered Nurse
DX: J32.9 Chronic sinusitis, unspecified (principal); R05.9 Cough, unspecified; F17.210 Nicotine dependence, cigarettes, uncomplicated; M06.9 Rheumatoid arthritis, unspecified; F98.8 Other specified behavioral and emotional disorders with onset usually occurring in childhood and adolescence
CPT/HCPCS: 99213; G0463

== ENCOUNTER 2022-05-20 21:54 | Emergency (ER) | payer OTHER, SELFPAY ==
--- NOTE | ~2022-05-20 | XR_ITS ---
EXAM: XR foot LT min 3V DATE: 05/20/2022 22:53 HISTORY: DROPPED WOOD ON LT FOOT, INJURY TO 2ND TOE . COMPARISON: None available. FINDINGS: Normal mineralization. Minimally comminuted fractures of the anterior cortices of the dist al aspect of the second middle phalange and the proximal aspect of the distal second phalange, seen o nly in the lateral view. No other fracture or dislocation. No lytic or blastic lesion. Joint spaces a re maintained. No erosion or periosteal change. Soft tissues within normal limits. IMPRESSION: Minimally comminuted nondisplaced and possibly intra-articular fractures distal aspect of the middle phalange and proximal aspect of the distal phalange of the second toe. Reviewed, dictated and finalized at location K. IMPRESSION: Minimally comminuted nondisplaced and possibly intra-articular frac tures distal aspect of the middle phalange and proximal aspect of the distal ph alange of the second toe.
[2022-05-20 22:02] VITALS: BP 160/100; PULSE 78; RESP 16; TEMP 36.4; O2SAT 99
--- NOTE | 2022-05-21 00:15 | ED.LOWEXIN ---
HPI - Extremity Injury (Lower) General Chief Complaint: Extremity Injury, Lower Stated Complaint: left foor injury Time Seen by Provider: 05/20/22 22:27 Source: patient Mode of arrival: ambulatory Limitations: no limitations History of Present Illness HPI Narrative: This is a 57 year old female that presents to the ER for injury to the left second toe sustained just prior to arrival. Reports she dropped a hall for campfire logs on her toe. Reports bleeding and pain to the area. She is up-to-date on tetanus. Denies decreased ROM or numbness. Related Data Home Medications Medication Instructions Recorded Confirmed adalimumab 40 mg/0.4 mL 40 mg subcut WEEKLY 07/05/21 04/25/22 subcutaneous pen kit (Humira(CF) Pen) dextroamphetamine-amphetamine 20 30 mg PO DAILY 07/05/21 04/25/22 mg tablet (Adderall) Allergies Allergy/AdvReac Type Severity Reaction Status Date / Time No Known Allergies Allergy Verified 04/25/22 13:55 Review of Systems Review of Systems: CONSTITUTIONAL: Denies fever SKIN: Reports laceration MUSCULOSKELETAL: Reports joint pain, and myalgia. NEUROLOGIC: Denies numbness All systems reviewed & are unremarkable except as noted in HPI and below PMFSH Past Medical History Medical History (Updated 05/21/22 @ 00:59 by Angelica Gould PA-C) ADD (attention deficit disorder) Adrenal insufficiency Rheumatoid arthritis UTI (urinary tract infection) Surgical History Surgical History (Updated 04/25/22 @ 14:58 by Lashay Mathews NP) History of arthroscopic surgery of shoulder left History of hysterectomy History of nasal surgery related to fracture Social History Social History Smoking packs per day: 1.5 Smoking cigarettes per day: 30.0 Years smoked: 30 Smoking pack-years: 45.00 Smoking status: Current every day smoker Substance use type: does not use Exam Narrative: GENERAL: Well-appearing, well-nourished, and in no acute distress. HEAD: Normocephalic, atraumatic. EYES: EOMI. EXTREMITIES: Normal range of motion. No edema or obvious deformity. Normal DP pulse. Normal sensation. Left second toe distal phalanx with 1cm irregular laceration noted to the dorsal surface SKIN: Warm, dry, no rash. NEURO: No focal deficits. Alert and oriented x3. PSYCH: Normal mood and affect Course Vital Signs Vital signs: Vital Signs Temperature 97.6 F 05/20/22 22:02 Pulse Rate 78 05/20/22 22:02 Respiratory Rate 16 05/20/22 22:02 Blood Pressure 160/100 H 05/20/22 22:02 Pulse Oximetry 99 05/20/22 22:02 Temperature 97.6 F 05/20/22 22:02 Pulse Rate 78 05/20/22 22:02 Respiratory Rate 16 05/20/22 22:02 Blood Pressure 160/100 H 05/20/22 22:02 Pulse Oximetry 99 05/20/22 22:02 Procedures Laceration Laceration 1: Date: 05/21/22 Time: 01:05 Site: lower extremity Side (If applicable): left Size (cm): 1 Description: irregular Depth: simple, single layer Local Anesthetic: lidocaine 1% Amount of anesthesia used (mL): 3 Pre-repair: irrigated ====== Skin Level ====== Skin layer closed with: nylon Size (cm): 5-0 Number of sutures: 1 Technique: simple, interrupted ====== Subcutaneous Layer ====== ====== Muscle Layer ====== ====== Tendon Layer ====== MDM - Extremity Injury (Lower) MDM Narrative Medical decision making narrative: Patient presents to the emergency department for left 2nd toe injury sustained just prior to arrival. Her wound was irrigated and closed with a suture. She is up-to-date on tetanus. Left foot x-ray shows a mildly comminuted nondisplaced and possible intra-articular fractures distal aspect of the middle phalanges and proximal aspect of the distal phalange of the second toe. Patient bulmaro taped and given a postop shoe. She was educated on wound care. She is
[2022-05-21 01:30] VITALS: BP 140/82; PULSE 72; RESP 16; O2SAT 98
== END 2022-05-21 01:33 | disposition home or self-care (01) ==
PROVIDERS: Emergency Provider Emergency Medicine
DX: S92.525A Nondisplaced fracture of middle phalanx of left lesser toe(s), initial encounter for closed fracture (principal); S91.115A Laceration without foreign body of left lesser toe(s) without damage to nail, initial encounter; E27.40 Unspecified adrenocortical insufficiency; M06.9 Rheumatoid arthritis, unspecified; Z87.440 Personal history of urinary (tract) infections; Z90.710 Acquired absence of both cervix and uterus; F98.8 Other specified behavioral and emotional disorders with onset usually occurring in childhood and adolescence; F17.210 Nicotine dependence, cigarettes, uncomplicated; W20.8XXA Other cause of strike by thrown, projected or falling object, initial encounter
CPT/HCPCS: 12001; 73630; 99284

== ENCOUNTER 2022-06-15 12:38 | Emergency (ER) | payer OTHER, SELFPAY ==
--- NOTE | 2022-06-15 12:46 | ED.URI ---
HPI - URI/Sore Throat General Chief Complaint: Upper Respiratory Infection Stated Complaint: headache,sinus issues Time Seen by Provider: 06/15/22 12:49 Source: patient, RN notes reviewed and old records reviewed Mode of arrival: ambulatory Limitations: no limitations History of Present Illness HPI Narrative: 57-year-old female presents to the [facility] with complaints of sinus congestion for the last 5 days. Takes Zyrtec daily but no other treatment prior to arrival. Patient reports sinus infections after having COVID Denies fevers, chest pain, abdominal pain. No rhinorrhea. Related Data Home Medications Medication Instructions Recorded Confirmed adalimumab 40 mg/0.4 mL 40 mg subcut WEEKLY 07/05/21 06/15/22 subcutaneous pen kit (Humira(CF) Pen) dextroamphetamine-amphetamine 20 30 mg PO DAILY 07/05/21 06/15/22 mg tablet (Adderall) albuterol sulfate 90 mcg/actuation 2 puff inhalation QID PRN 06/15/22 06/15/22 aerosol inhaler Shortness Of Breath Or Wheezing Allergies Allergy/AdvReac Type Severity Reaction Status Date / Time No Known Allergies Allergy Verified 06/15/22 12:42 Review of Systems Review of Systems: All systems reviewed & are unremarkable except as noted in HPI and below Constitutional: Constitutional: Reports no additional constitutional complaints, Denies chills and Denies fever(s) Eyes: Eyes: Reports no additional eye complaints ENT: Reports as per HPI and Reports nasal congestion Cardiovascular: Cardiovascular: Reports no additional cardiovascular complaints Respiratory: Respiratory: Reports no additional respiratory complaints Gastrointestinal: Gastrointestinal: Reports no additional gastrointestinal complaints Musculoskeletal: Musculoskeletal: Reports no additional musculoskeletal complaints Integumentary/Breasts: Skin/Breast: Reports system reviewed and no additional complaints, except as docu Neurologic: Reports system reviewed and no additional complaints, except as documented Psychiatric: Psychiatric: Reports no additional psychiatric complaints Allergic/Immunologic: Allergic/Immunologic: Reports no additional allergic/immunologic complaints PMF Past Medical History Medical History ADD (attention deficit disorder) Adrenal insufficiency Rheumatoid arthritis UTI (urinary tract infection) Surgical History Surgical History History of arthroscopic surgery of shoulder left History of hysterectomy History of nasal surgery related to fracture Social History Social History Smoking packs per day: 1.5 Smoking cigarettes per day: 30.0 Years smoked: 30 Smoking pack-years: 45.00 Smoking status: Current every day smoker Substance use type: does not use Comments At the time of my signature, I reviewed and agree with the nursing past medical, surgical, social, and family history. There is no relevant family history pertinent to the patient complaint. Exam Const: General: healthy appearing, no acute distress and alert Nutritional Appearance: well nourished Orientation/consciousness: patient oriented x3 Limitations: no limitations HENMT: Head: normal to inspection Ears: external ears normal, EAC's normal and TM abnormal with fluid behind the TM bilateral; not bulging, not dull, not erythematous and with no loss of landmarks General nose exam: Normal external nose present and Normal nares present Face and sinus: normal facial exam Mouth: Yes Normal oral and palatal mucosa present, Yes lip normal and Yes moist mucous membranes Throat: posterior oropharynx normal and uvula midline Eyes: General: appearance normal, both eyes and all related structures Conjunctivae: conjunctivae normal Pupils: Equal, round and reactive pupils present Neck: Neck: normal visual inspection, no lymphadenopathy and no
[2022-06-15 12:49] VITALS: BP 157/103; PULSE 72; RESP 16; TEMP 37.3; O2SAT 100
== END 2022-06-15 13:24 | disposition home or self-care (01) ==
PROVIDERS: Emergency Provider Nurse Practitioner
DX: J32.9 Chronic sinusitis, unspecified (principal); Z20.822 Contact with and (suspected) exposure to COVID-19; F17.210 Nicotine dependence, cigarettes, uncomplicated; M06.9 Rheumatoid arthritis, unspecified; F98.8 Other specified behavioral and emotional disorders with onset usually occurring in childhood and adolescence
CPT/HCPCS: 87426; 87804; 99213; C9803; G0463

== ENCOUNTER 2022-08-17 10:24 | Emergency (ER) | payer OTHER, SELFPAY ==
[2022-08-17 10:31] VITALS: BP 141/94; PULSE 82; RESP 18; TEMP 37; O2SAT 100
--- NOTE | 2022-08-17 10:32 | ED.URI ---
HPI - URI/Sore Throat General Chief Complaint: Upper Respiratory Infection Stated Complaint: Sinus Time Seen by Provider: 08/17/22 10:40 Source: patient and RN notes reviewed Mode of arrival: ambulatory Limitations: no limitations History of Present Illness HPI Narrative: 57-year-old female with history of immunocompromise presents concern for a week and a half history of nasal congestion drainage, sinus pressure, ear pain, general malaise. She reports she has been trying [id number] medications including Sudafed without relief. She reports she took a COVID test which was negative. She denies shortness of breath. MD elicited complaint: cough and nasal congestion Related Data Home Medications Medication Instructions Recorded Confirmed dextroamphetamine-amphetamine 20 20 mg DAILY 11/04/19 08/17/22 mg tablet celecoxib 100 mg capsule 100 mg DAILY 11/07/20 08/17/22 adalimumab 40 mg/0.4 mL 40 mg subcut DIRECTED 09/13/21 08/17/22 subcutaneous pen kit (Humira(CF) Pen) hydroxychloroquine 200 mg tablet 200 mg PO DIRECTED 03/06/22 08/17/22 lisinopril 10 mg tablet 10 mg PO DAILY 08/17/22 08/17/22 Allergies Allergy/AdvReac Type Severity Reaction Status Date / Time No Known Allergies Allergy Verified 08/17/22 10:28 Review of Systems Review of Systems: CONSTITUTIONAL: Reports malaise EYES: Denies visual changes, redness, or discharge. ENT: Reports rhinorrhea, congestion, sinus pain, otalgia. Denies sore throat. CARDIOVASCULAR: Denies chest pain, palpitations, or edema. RESPIRATORY: Reports cough. Denies dyspnea. GASTROINTESTINAL: Denies abdominal pain, nausea, vomiting, diarrhea SKIN: Denies rash or itching. MUSCULOSKELETAL: Denies myalgia. NEUROLOGIC: Denies headache. 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 Rheumatoid arthritis Rheumatoid arthritis UTI (urinary tract infection) UTI (urinary tract infection) Surgical History Surgical History History of arthroscopic surgery of shoulder left History of arthroscopic surgery of shoulder left History of hysterectomy History of hysterectomy No pertinent past surgical history Social History Social History (System 11/15/20 @ 10:22 by Nora Villareal) Smoking packs per day: 1 Smoking cigarettes per day: 20.0 Years smoked: 40 Smoking pack-years: 40.00 Smoking status: Current every day smoker Tobacco type: cigarettes Alcohol intake: current Substance use: current Substance use type: opiates Last use: RA pain Gender identity (if verbalized by the patient): Female Comments At time of signature, agree with nursing past medical, surgical, social and family history. There is no relevant family history pertinent to the presenting complaint Exam Narrative: GENERAL: Nontoxic appearing and in no acute distress. HEAD: Normocephalic EYES: PERRLA, conjunctivae clear ENT: Nares clear, turbinates edematous and erythematous, sinus tenderness. Mucous membranes moist. TM pearly morris with dull light reflex bilaterally; no tragal tenderness. Oropharynx not erythematous without lesions. Tonsils not enlarged and without exudate, no drooling, no hoarseness, no trismus, uvula midline. NECK: Supple. No lymphadenopathy CHEST: Clear to auscultation, breath sounds equal. No wheezing, rhonchi, rales, or stridor. No respiratory distress, speaks in full sentences. Cough noted HEART: Regular rate and rhythm. No murmur heard. SKIN: Warm, dry, no rash. NEURO: Alert and oriented x3. PSYCH: Normal mood and affect Course Course Emergency Course: Patient is aware of diagnosis, understands and agrees to treatme
== END 2022-08-17 10:52 | disposition home or self-care (01) ==
PROVIDERS: Emergency Provider Nurse Practitioner
DX: J32.9 Chronic sinusitis, unspecified (principal); J40 Bronchitis, not specified as acute or chronic; F17.210 Nicotine dependence, cigarettes, uncomplicated; E06.3 Autoimmune thyroiditis; M06.9 Rheumatoid arthritis, unspecified; F98.8 Other specified behavioral and emotional disorders with onset usually occurring in childhood and adolescence
CPT/HCPCS: 99213; G0463

== ENCOUNTER 2022-08-29 11:31 | Emergency (ER) | payer OTHER, SELFPAY ==
--- NOTE | ~2022-08-29 | XR_ITS ---
XR chest 2V 08/29/2022 12:43 Indication: Nonproductive cough for 3 weeks Procedure: 2 view chest Comparison: 03/06/2022 Findings: Heart size normal. There is left basilar atelectasis. No focal pneumonia, edema, pleural ef fusion or pneumothorax Impression: 1: Left basilar atelectasis. Reviewed, dictated and finalized at location B. Impression: 1: Left basilar atelectasis.
[2022-08-29 11:44] VITALS: BP 131/91; PULSE 72; RESP 16; TEMP 36.6; O2SAT 100
--- NOTE | 2022-08-29 12:19 | ED.URI ---
HPI - URI/Sore Throat General Chief Complaint: Upper Respiratory Infection Stated Complaint: uri Time Seen by Provider: 08/29/22 12:20 Source: patient, RN notes reviewed and old records reviewed Mode of arrival: ambulatory Limitations: no limitations History of Present Illness HPI Narrative: 57-year-old female returns to the [facility] after being seen and evaluated on August 17, 2012 days ago. Did not follow-up with her primary care provider. Reports finishing her antibiotics, steroids and cough medication, still having symptoms. Has not followed up with her doctor. Used her inhaler today. States that she just just wants more steroids cassette what makes her feel better. MD elicited complaint: cough Related Data Home Medications Medication Instructions Recorded Confirmed dextroamphetamine-amphetamine 20 20 mg DAILY 11/04/19 08/29/22 mg tablet adalimumab 40 mg/0.4 mL 40 mg subcut DIRECTED 09/13/21 08/29/22 subcutaneous pen kit (Humira(CF) Pen) lisinopril 10 mg tablet 10 mg PO DAILY 08/17/22 08/29/22 Allergies Allergy/AdvReac Type Severity Reaction Status Date / Time No Known Allergies Allergy Verified 08/29/22 11:50 Review of Systems Review of Systems: All systems reviewed & are unremarkable except as noted in HPI and below Constitutional: Constitutional: Reports no additional constitutional complaints, Denies chills and Denies fever(s) Eyes: Eyes: Reports no additional eye complaints ENT: Reports system reviewed and no additional complaints, except as documented Cardiovascular: Cardiovascular: Reports no additional cardiovascular complaints Respiratory: Respiratory: Reports as per HPI, Reports chest congestion and Reports cough Gastrointestinal: Gastrointestinal: Reports no additional gastrointestinal complaints Musculoskeletal: Musculoskeletal: Reports no additional musculoskeletal complaints Integumentary/Breasts: Skin/Breast: Reports system reviewed and no additional complaints, except as docu Neurologic: Reports system reviewed and no additional complaints, except as documented Psychiatric: Psychiatric: Reports no additional psychiatric complaints Allergic/Immunologic: Allergic/Immunologic: Reports no additional allergic/immunologic complaints PMFSH Past Medical History Medical History ADD (attention deficit disorder) ADD (attention deficit disorder) Adrenal insufficiency Adrenal insufficiency [place]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 Rheumatoid arthritis Rheumatoid arthritis UTI (urinary tract infection) UTI (urinary tract infection) Surgical History Surgical History History of arthroscopic surgery of shoulder left History of arthroscopic surgery of shoulder left History of hysterectomy History of hysterectomy No pertinent past surgical history Social History Social History Smoking packs per day: 1 Smoking cigarettes per day: 20.0 Years smoked: 40 Smoking pack-years: 40.00 Smoking status: Current every day smoker Tobacco type: cigarettes Alcohol intake: current Substance use: current Substance use type: opiates Last use: RA pain Gender identity (if verbalized by the patient): Female Comments At the time of my signature, I reviewed and agree with the nursing past medical, surgical, social, and family history. There is no relevant family history pertinent to the patient complaint. Exam Const: General: healthy appearing, no acute distress, alert and well nourished Nutritional Appearance: well nourished Orientation/consciousness: patient oriented x3 Limitations: no limitations HENMT: Head: normal to inspection Ears: external ears normal, TM's normal bilaterally and EAC's normal Face/Nose/Sinus: Normal external nose present Face and sinus: normal facial exam Throat: physical therapist assistant
== END 2022-08-29 13:23 | disposition home or self-care (01) ==
PROVIDERS: Emergency Provider Nurse Practitioner
DX: J98.11 Atelectasis (principal); F98.8 Other specified behavioral and emotional disorders with onset usually occurring in childhood and adolescence; M06.9 Rheumatoid arthritis, unspecified; F17.210 Nicotine dependence, cigarettes, uncomplicated; Z20.822 Contact with and (suspected) exposure to COVID-19
CPT/HCPCS: 71046; 87426; 87804; 99213; C9803; G0463

== ENCOUNTER 2022-10-14 15:32 | Emergency (ER) | payer OTHER, SELFPAY | END 2022-10-14 16:10 | disposition left against medical advice (07) | PROVIDERS: Emergency Provider Nurse Practitioner Adult Health | DX: Z53.21 Procedure and treatment not carried out due to patient leaving prior to being seen by health care provider (principal) | CPT/HCPCS: 99199 ==

== ENCOUNTER 2022-12-03 12:18 | Emergency (ER) | payer OTHER, SELFPAY ==
[2022-12-03 12:43] VITALS: BP 149/95; PULSE 77; RESP 18; TEMP 36.4; O2SAT 99
[2022-12-03 12:45] VITALS: BP 149/95; PULSE 77; RESP 18; TEMP 36.4; O2SAT 99
--- NOTE | 2022-12-03 13:37 | ED.FEMALEGU ---
HPI - Female Genitourinary General Chief complaint: Urogenital-Female Stated complaint: uti complaint Time Seen by Provider: 12/03/22 13:25 Source: patient, RN notes reviewed and old records reviewed Mode of arrival: ambulatory Limitations: no limitations History of Present Illness HPI Narrative: 57 year old female who presents to [facility] with 2 week complaints of urinary frequency and urgency with some burning which has increased in the last 3 days. Patient denies any known fevers, chills or sweats, denies any nausea or vomiting or any diarrhea does reports some fatigue. Patient reports that she feels like she is not emptying her bladder and does have some back pain intermittently in flank area. Patient denies any concern for STD exposure. Patine states that she does have history of past urinary tract infection. MD elicited complaint: UTI Pertinent past history: hysterectomy and other (immunosuppression) Onset (ago): day(s) (2 week symptoms with increased symptoms for past 3 days.) Location of symptoms: perineum and flank (bilateral intermittent) Severity scale (1-10): 4 Quality of pain: burning and aching Consistency: progressively worsening Vaginal discharge: none Vaginal bleeding: none Related Data Home Medications Medication Instructions Recorded Confirmed dextroamphetamine-amphetamine 20 30 mg PO DAILY 07/05/21 12/03/22 mg tablet (Adderall) adalimumab 40 mg/0.4 mL 40 mg subcut DIRECTED 09/13/21 12/03/22 subcutaneous pen kit (Humira(CF) Pen) albuterol sulfate 90 mcg/actuation 2 puff inhalation QID PRN 06/15/22 12/03/22 aerosol inhaler Shortness Of Breath Or Wheezing lisinopril 10 mg tablet 10 mg PO DAILY 08/17/22 12/03/22 Allergies Allergy/AdvReac Type Severity Reaction Status Date / Time No Known Allergies Allergy Verified 12/03/22 12:43 Review of Systems Review of Systems: CONSTITUTIONAL: Denies fever, chills, or sweats. CARDIOVASCULAR: Denies chest pain, palpitations, or edema. RESPIRATORY: Denies cough or dyspnea. GASTROINTESTINAL: Denies abdominal pain, nausea, vomiting, or diarrhea. GENITOURINARY: Reports dysuria, frequency, urgency. reports some intermittent flank pain no visible hematuria. SKIN: Denies rash or itching. MUSCULOSKELETAL: Denies back pain or myalgia. 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 Rheumatoid arthritis Rheumatoid arthritis Rheumatoid arthritis UTI (urinary tract infection) UTI (urinary tract infection) UTI (urinary tract infection) Surgical History Surgical History (Updated 12/03/22 @ 14:39 by Lashay Mathews NP) History of arthroscopic surgery of shoulder left History of arthroscopic surgery of shoulder left History of arthroscopic surgery of shoulder left History of hysterectomy History of hysterectomy History of nasal surgery related to fracture No pertinent past surgical history Social History Social History Smoking packs per day: 1.5 Smoking cigarettes per day: 30.0 Years smoked: 30 Smoking pack-years: 45.00 Smoking status: Current every day smoker Tobacco type: cigarettes Alcohol intake: current Substance use: current Substance use type: does not use and opiates Last use: RA pain Living arrangements: with family Gender identity (if verbalized by the patient): Female Comments At time of signature, agree with nursing past medical, surgical, social and family history. There is no relevant family history pertinent to the presenting complaint Exam Narrati
== END 2022-12-03 13:51 | disposition home or self-care (01) ==
PROVIDERS: Emergency Provider Registered Nurse
DX: N39.0 Urinary tract infection, site not specified (principal); F17.210 Nicotine dependence, cigarettes, uncomplicated; F98.8 Other specified behavioral and emotional disorders with onset usually occurring in childhood and adolescence; E06.3 Autoimmune thyroiditis; M06.9 Rheumatoid arthritis, unspecified
CPT/HCPCS: 81003; 87086; 99213; G0463

== ENCOUNTER 2023-03-10 17:00 | Emergency (ER) | payer OTHER, SELFPAY ==
[2023-03-10 17:05] VITALS: BP 149/93; PULSE 76; RESP 20; TEMP 37.3; O2SAT 100
--- NOTE | 2023-03-10 17:37 | ED.FEMALEGU ---
HPI - Female Genitourinary General Chief complaint: Urogenital-Female Stated complaint: UTI Time Seen by Provider: 03/10/23 17:38 Source: patient, RN notes reviewed and old records reviewed Mode of arrival: ambulatory Limitations: no limitations History of Present Illness HPI Narrative: 58-year-old female presents to the [facility] with concerns over bacterial vaginitis. Has a history of BV, states it feels and smiles exactly as her previous BV episodes. Patient reports that she had a new partner a month ago when she started having sex again after several years. States she has had yellow thick discharge with abnormal smell. Related Data Home Medications Medication Instructions Recorded Confirmed dextroamphetamine-amphetamine 20 30 mg PO DAILY 07/05/21 03/10/23 mg tablet (Adderall) adalimumab 40 mg/0.4 mL 40 mg subcut DIRECTED 09/13/21 03/10/23 subcutaneous pen kit (Humira(CF) Pen) albuterol sulfate 90 mcg/actuation 2 puff inhalation QID PRN 06/15/22 03/10/23 aerosol inhaler Shortness Of Breath Or Wheezing lisinopril 10 mg tablet 10 mg PO DAILY 08/17/22 03/10/23 tiotropium bromide 2.5 2.5 mcg inhalation DIRECTED 03/10/23 03/10/23 mcg/actuation mist for inhalation (Spiriva Respimat) Allergies Allergy/AdvReac Type Severity Reaction Status Date / Time No Known Allergies Allergy Verified 12/03/22 12:43 Review of Systems Review of Systems: All systems reviewed & are unremarkable except as noted in HPI and below Constitutional: Constitutional: Reports no additional constitutional complaints Eyes: Eyes: Reports no additional eye complaints ENT: Reports system reviewed and no additional complaints, except as documented Cardiovascular: Cardiovascular: Reports no additional cardiovascular complaints, Denies chest pain and Denies dyspnea Respiratory: Respiratory: Reports no additional respiratory complaints, Denies chest congestion, Denies cough and Denies dyspnea Gastrointestinal: Gastrointestinal: Reports no additional gastrointestinal complaints, Denies abdominal pain, Denies nausea and Denies vomiting Genitourinary: Genitourinary: Reports as per HPI and Reports vaginal discharge Musculoskeletal: Musculoskeletal: Reports no additional musculoskeletal complaints Integumentary/Breasts: Skin/Breast: Reports system reviewed and no additional complaints, except as docu Neurologic: Reports system reviewed and no additional complaints, except as documented Psychiatric: Psychiatric: Reports no additional psychiatric complaints Allergic/Immunologic: Allergic/Immunologic: Reports no additional allergic/immunologic complaints [facility] Past Medical History Medical History ADD (attention deficit disorder) ADD (attention deficit disorder) ADD (attention deficit disorder) Adrenal insufficiency Adrenal insufficiency Adrenal insufficiency [place]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 Smoking packs per day: 1.5 Smoking cigarettes per day: 30.0 Years smoked: 30 Smoking pack-years: 45.00 Smoking status: Current every day smoker Tobacco type: cigarettes Alcohol intake: current Substance use: current Substance use type: does not use and opiates Last use: RA pain Living arrangements: with family Gender identity (if verbalized b
== END 2023-03-10 17:58 | disposition home or self-care (01) ==
PROVIDERS: Emergency Provider Nurse Practitioner; PCP Family Medicine
DX: N76.0 Acute vaginitis (principal); F17.210 Nicotine dependence, cigarettes, uncomplicated; F98.8 Other specified behavioral and emotional disorders with onset usually occurring in childhood and adolescence; M06.9 Rheumatoid arthritis, unspecified
CPT/HCPCS: 81003; 87086; 87088; 99213; G0463

== ENCOUNTER 2023-04-01 10:00 | Emergency (ER) | payer OTHER, SELFPAY ==
[2023-04-01 10:10] VITALS: BP 132/81; PULSE 88; RESP 18; TEMP 36.6; O2SAT 100
--- NOTE | 2023-04-01 10:22 | ED.URI ---
HPI - URI/Sore Throat General Chief Complaint: Upper Respiratory Infection Stated Complaint: sob,congestion,bilateral eye irritation Time Seen by Provider: 04/01/23 10:25 Source: patient, RN notes reviewed and old records reviewed Mode of arrival: ambulatory Limitations: no limitations History of Present Illness HPI Narrative: 58-year-old female presents to the [facility] with complaints chest congestion, bilateral eye irritation, shortness of breath, sinus congestion for 2-3 weeks. Denies fevers Denies chest pain. Related Data Home Medications Medication Instructions Recorded Confirmed dextroamphetamine-amphetamine 20 30 mg PO DAILY 07/05/21 04/01/23 mg tablet (Adderall) adalimumab 40 mg/0.4 mL 40 mg subcut DIRECTED 09/13/21 04/01/23 subcutaneous pen kit (Humira(CF) Pen) albuterol sulfate 90 mcg/actuation 2 puff inhalation QID PRN 06/15/22 04/01/23 aerosol inhaler Shortness Of Breath Or Wheezing lisinopril 10 mg tablet 10 mg PO DAILY 08/17/22 04/01/23 tiotropium bromide 2.5 2.5 mcg inhalation DIRECTED 03/10/23 04/01/23 mcg/actuation mist for inhalation (Spiriva Respimat) alendronate 70 mg tablet 70 mg PO BIDWMEAL 04/01/23 04/01/23 Allergies Allergy/AdvReac Type Severity Reaction Status Date / Time No Known Allergies Allergy Verified 04/01/23 10:07 Review of Systems Review of Systems: All systems reviewed & are unremarkable except as noted in HPI and below Constitutional: Constitutional: Reports no additional constitutional complaints Eyes: Eyes: Reports no additional eye complaints ENT: Reports as per HPI Cardiovascular: Cardiovascular: Reports no additional cardiovascular complaints, Denies chest pain and Denies dyspnea Respiratory: Respiratory: Reports as per HPI, Reports chest congestion, Reports cough and Denies dyspnea Gastrointestinal: Gastrointestinal: Reports no additional gastrointestinal complaints, Denies abdominal pain, Denies nausea and Denies vomiting Musculoskeletal: Musculoskeletal: Reports no additional musculoskeletal complaints Integumentary/Breasts: Skin/Breast: Reports system reviewed and no additional complaints, except as docu Neurologic: Reports system reviewed and no additional complaints, except as documented Psychiatric: Psychiatric: Reports no additional psychiatric complaints Allergic/Immunologic: Allergic/Immunologic: Reports no additional allergic/immunologic complaints PMFSH Past Medical History Medical History ADD (attention deficit disorder) ADD (attention deficit disorder) ADD (attention deficit disorder) Adrenal insufficiency Adrenal insufficiency Adrenal insufficiency [place]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 Smoking packs per day: 1.5 Smoking cigarettes per day: 30.0 Years smoked: 30 Smoking pack-years: 45.00 Smoking status: Current every day smoker Tobacco type: cigarettes Alcohol intake: current Substance use: current Substance use type: does not use and opiates Last use: RA pain Living arrangements: with family Gender identity (if verbalized by the patient): Female Comments At the time of my signature, I reviewed and agree with the nursing past medical, surgical, social, and family history. There is no relevant family history pertinent to
== END 2023-04-01 10:40 | disposition home or self-care (01) ==
PROVIDERS: Emergency Provider Nurse Practitioner; PCP Family Medicine
DX: J40 Bronchitis, not specified as acute or chronic (principal); F17.210 Nicotine dependence, cigarettes, uncomplicated
CPT/HCPCS: 99213; G0463

== ENCOUNTER 2023-10-01 13:11 | Emergency (ER) | payer OTHER, SELFPAY ==
--- NOTE | 2023-10-01 13:19 | ED.BACK ---
HPI - Back Pain/Injury General Chief Complaint: Urogenital-Female Stated Complaint: lower back pain Time Seen by Provider: 10/01/23 13:19 Source: patient Mode of arrival: ambulatory Limitations: no limitations History of Present Illness HPI Narrative: Patient is a 58-year-old female presents with low back pain started Friday. Patient states pain has worsened even with taking naproxen, Tylenol and other pain medication. Patient has also noticed decreased urine output and states urine has looked foamy and thick . Denies any numbness, tingling or weakness down extremities. Denies any loss of bowel or bladder. Has had episode of diarrhea but denies any nausea her vomiting. Denies any fever or chills. Patient did take few doses of amoxicillin she had left over from June. 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 Denies any fall or injury, spinal tenderness or increased pain on palpation. Patient has also been suffering from URI for 1 week. Patient states that has prevented her from getting her weekly RA injection. Related Data Home Medications Medication Instructions Recorded Confirmed dextroamphetamine-amphetamine 20 30 mg PO DAILY 07/05/21 10/01/23 mg tablet (Adderall) adalimumab 40 mg/0.4 mL 40 mg subcut DIRECTED 09/13/21 10/01/23 subcutaneous pen kit (Humira(CF) Pen) albuterol sulfate 90 mcg/actuation 2 puff inhalation QID PRN 06/15/22 10/01/23 aerosol inhaler Shortness Of Breath Or Wheezing lisinopril 10 mg tablet 10 mg PO DAILY 08/17/22 10/01/23 tiotropium bromide 2.5 2.5 mcg inhalation DIRECTED 03/10/23 10/01/23 mcg/actuation mist for inhalation (Spiriva Respimat) Allergies Allergy/AdvReac Type Severity Reaction Status Date / Time No Known Allergies Allergy Verified 04/01/23 10:07 Review of Systems Review of Systems: All systems reviewed & are unremarkable except as noted in HPI and below Constitutional: Constitutional: Denies chills, Denies fever(s), Denies headache(s), Denies malaise and Denies weakness Eyes: Eyes: Denies change in vision, Denies eye discharge and Denies irritation ENT: Denies otalgia, Denies headache(s), Denies nasal congestion, Denies nasal discharge, Denies sinus pain and Denies sore throat Cardiovascular: Cardiovascular: Denies chest pain, Denies edema, Denies palpitations and Denies dyspnea Respiratory: Respiratory: Denies cough and Denies dyspnea Gastrointestinal: Gastrointestinal: Denies abdominal pain, Reports diarrhea, Denies nausea and Denies vomiting Genitourinary: Genitourinary: Denies hematuria, Reports dysuria, Denies flank pain and Reports other (decreased urine output) Musculoskeletal: Musculoskeletal: Reports back pain and Denies numbness Integumentary/Breasts: Skin/Breast: Denies pruritus and Denies rash Neurologic: Denies headache(s), Denies numbness and Denies weakness Psychiatric: Psychiatric: Reports no additional psychiatric complaints Endocrine: Endocrine: Denies palpitations PMFSH Past Medical History Medical History ADD (attention deficit disorder) ADD (attention deficit disorder) ADD (attention deficit disorder) Adrenal insufficiency Adrenal insufficiency Adrenal insufficiency 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
[2023-10-01 13:24] VITALS: BP 113/84; PULSE 94; RESP 18; TEMP 36.7; O2SAT 98
== END 2023-10-01 14:00 | disposition home or self-care (01) ==
PROVIDERS: Emergency Provider Nurse Practitioner Family; PCP Family Medicine
DX: M54.16 Radiculopathy, lumbar region (principal); F17.210 Nicotine dependence, cigarettes, uncomplicated; E06.3 Autoimmune thyroiditis; M06.9 Rheumatoid arthritis, unspecified; F98.8 Other specified behavioral and emotional disorders with onset usually occurring in childhood and adolescence
CPT/HCPCS: 81003; 87086; 99213; G0463

== ENCOUNTER 2023-10-13 13:58 | Emergency (ER) | payer OTHER, SELFPAY ==
[2023-10-13 14:19] VITALS: BP 144/94; PULSE 79; RESP 16; TEMP 36.3; O2SAT 100
--- NOTE | 2023-10-13 14:41 | ED.URI ---
HPI - URI/Sore Throat General Chief Complaint: Upper Respiratory Infection Stated Complaint: congestion Source: patient Mode of arrival: ambulatory Limitations: no limitations History of Present Illness HPI Narrative: 58-year-old female presents to [facility] with complaints of nasal congestion, head congestion and sinus pressure for the past 2 weeks. Patient has been taking [id number] Zyrtec, Mucinex and using her inhaler with minimal relief. Patient was given a round of steroids on October 01 for back pain which she said helped her symptoms for a few days. Patient denies shortness of breath, wheezing, nausea vomiting, diarrhea, fevers, body aches or chills MD elicited complaint: rhinorrhea, nasal congestion and sinus pain Onset (ago): week(s) (2) Exacerbating factors: nothing Relieving factors: nothing Treatments prior to arrival: cold medicine Related Data Home Medications Medication Instructions Recorded Confirmed dextroamphetamine-amphetamine 20 30 mg PO DAILY 07/05/21 10/13/23 mg tablet (Adderall) adalimumab 40 mg/0.4 mL 40 mg subcut DIRECTED 09/13/21 10/13/23 subcutaneous pen kit (Humira(CF) Pen) albuterol sulfate 90 mcg/actuation 2 puff inhalation QID PRN 06/15/22 10/13/23 aerosol inhaler Shortness Of Breath Or Wheezing lisinopril 10 mg tablet 10 mg PO DAILY 08/17/22 10/13/23 tiotropium bromide 2.5 2.5 mcg inhalation DIRECTED 03/10/23 10/13/23 mcg/actuation mist for inhalation (Spiriva Respimat) Allergies Allergy/AdvReac Type Severity Reaction Status Date / Time No Known Allergies Allergy Verified 10/13/23 14:16 Review of Systems Constitutional: Constitutional: Denies chills, Denies fatigue, Denies fever(s) and Denies weakness ENT: Denies dizziness, Denies epistaxis, Reports nasal congestion and Denies sore throat Cardiovascular: Cardiovascular: Denies chest pain Respiratory: Respiratory: Reports cough, Denies dyspnea and Denies wheezing Gastrointestinal: Gastrointestinal: Denies diarrhea, Denies nausea and Denies vomiting Integumentary/Breasts: Skin/Breast: Denies erythema and Denies rash Neurologic: Denies syncope and Denies headache(s) [facility] Past Medical History Medical History ADD (attention deficit disorder) ADD (attention deficit disorder) ADD (attention deficit disorder) Adrenal insufficiency Adrenal insufficiency Adrenal insufficiency 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 Smoking packs per day: 1.5 Smoking cigarettes per day: 30.0 Years smoked: 30 Smoking pack-years: 45.00 Smoking status: Current every day smoker Tobacco type: cigarettes Alcohol intake: current Substance use: current Substance use type: does not use and opiates Last use: RA pain Living arrangements: with family Gender identity (if verbalized by the patient): Female Comments At time of signature, I agree with nursing past medical, surgical, social and family history. There is no relevant family history pertinent to the presenting complaint. Exam Const: General: healthy appearing and no acute distress Nutritional Appearance: well nourished Orientation/consciousness: patient oriented x3 Limitations: no limitations HENMT: Head: normal to inspection Ears: external ears normal, TM's norm
== END 2023-10-13 14:47 | disposition home or self-care (01) ==
PROVIDERS: Emergency Provider Nurse Practitioner Family; PCP Family Medicine
DX: J32.9 Chronic sinusitis, unspecified (principal); F17.210 Nicotine dependence, cigarettes, uncomplicated; E06.3 Autoimmune thyroiditis; M06.9 Rheumatoid arthritis, unspecified; F98.8 Other specified behavioral and emotional disorders with onset usually occurring in childhood and adolescence
CPT/HCPCS: 99213; G0463

== ENCOUNTER 2023-11-20 18:25 | Emergency (ER) | payer OTHER, SELFPAY ==
[2023-11-20 18:45] VITALS: BP 148/92; PULSE 83; RESP 16; TEMP 37.3; O2SAT 100
--- NOTE | 2023-11-20 18:48 | ED.URI ---
HPI - URI/Sore Throat General Chief Complaint: Upper Respiratory Infection Stated Complaint: sinus problem,dizzy,cough Time Seen by Provider: 11/20/23 18:49 Source: patient Mode of arrival: ambulatory Limitations: no limitations History of Present Illness HPI Narrative: Keturah is a 58-year-old female patient presenting to the clinic today with complaints of sinus pain, ear pain, sinus pressure, cough, and dizziness for the past 3 weeks. She reports she is blowing out green and yellow snot. MD elicited complaint: cough, nasal congestion and sinus pain Related Data Home Medications Medication Instructions Recorded Confirmed dextroamphetamine-amphetamine 20 30 mg PO DAILY 07/05/21 11/20/23 mg tablet (Adderall) adalimumab 40 mg/0.4 mL 40 mg subcut DIRECTED 09/13/21 11/20/23 subcutaneous pen kit (Humira(CF) Pen) albuterol sulfate 90 mcg/actuation 2 puff inhalation QID PRN 06/15/22 11/20/23 aerosol inhaler Shortness Of Breath Or Wheezing lisinopril 10 mg tablet 10 mg PO DAILY 08/17/22 11/20/23 tiotropium bromide 2.5 2.5 mcg inhalation DIRECTED 03/10/23 11/20/23 mcg/actuation mist for inhalation (Spiriva Respimat) Allergies Allergy/AdvReac Type Severity Reaction Status Date / Time No Known Allergies Allergy Verified 10/13/23 14:16 Review of Systems Review of Systems: Pertinent positives per HPI. Patient denies any fever, chills, rash, headache, visual changes, dizziness, shortness of breath, chest pain, palpitations, nausea, vomiting, diarrhea, constipation, abdominal pain, or any urinary issues. 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 Smoking packs per day: 1.5 Smoking cigarettes per day: 30.0 Years smoked: 30 Smoking pack-years: 45.00 Smoking status: Current every day smoker Tobacco type: cigarettes Alcohol intake: current Substance use: current Substance use type: does not use and opiates Last use: RA pain Living arrangements: with family Gender identity (if verbalized by the patient): Female Comments At the time of my signature, I reviewed and agree with the nursing past medical, surgical, social, and family history. There is no relevant family history pertinent to the patient complaint. Exam Narrative: General: Well-developed, well nourished, in no apparent distress Head: Normocephalic, atraumatic Eyes: Pupils equally round and reactive to light bilaterally, EOM intact, sclera and conjunctive clear, no discharge, lids normal Ears: TMs intact and congested, ear canals clear, no drainage, grossly hearing normal. Nose: Nares patent, green nasal discharge, moderate inflammation, maxillary and frontal sinus tenderness. Mouth: Oral pharynx without lesions or masses, good dentition, MMM. Neck: Supple, trachea midline, no enlargement of anterior or posterior cervical nodes, no thyroid masses or goiter palpable. Cardio: Regular rate and rhythm, s1 and s2 normal, no murmur appreciated. Resp: Clear to auscultation bilaterally, no rhonchi, rales, wheezing or rubs Course Course [place]
== END 2023-11-20 19:07 | disposition home or self-care (01) ==
PROVIDERS: Emergency Provider Nurse Practitioner Family; PCP Family Medicine
DX: J01.90 Acute sinusitis, unspecified (principal); F17.210 Nicotine dependence, cigarettes, uncomplicated; E06.3 Autoimmune thyroiditis; M06.9 Rheumatoid arthritis, unspecified; F98.8 Other specified behavioral and emotional disorders with onset usually occurring in childhood and adolescence
CPT/HCPCS: 99213; G0463

== ENCOUNTER 2024-09-22 08:48 | Emergency (ER) | payer OTHER, SELFPAY ==
--- NOTE | 2024-09-22 08:57 | ED.URI ---
HPI - URI/Sore Throat General Chief Complaint: Upper Respiratory Infection Stated Complaint: cough,sinus issue Time Seen by Provider: 09/22/24 08:57 Source: patient Mode of arrival: ambulatory Limitations: no limitations History of Present Illness HPI Narrative: Keturah is a 59-year-old female patient presenting to the clinic today with complaints of cough, sinus pressure, and congestion times 2 weeks. She reports she is bringing up some yellow-green phlegm with coughing and blowing her nose. Denies any fevers, chills, or body aches. Denies any chest pain. Does have occasional shortness of breath. Has been using her albuterol inhaler. MD elicited complaint: cough, rhinorrhea, nasal congestion and sinus pain Related Data Home Medications Medication Instructions Recorded Confirmed dextroamphetamine-amphetamine 20 30 mg PO DAILY 07/05/21 11/20/23 mg tablet (Adderall) adalimumab 40 mg/0.4 mL 40 mg subcut DIRECTED 09/13/21 11/20/23 subcutaneous pen kit (Humira(CF) Pen) albuterol sulfate 90 mcg/actuation 2 puff inhalation QID PRN 06/15/22 11/20/23 aerosol inhaler Shortness Of Breath Or Wheezing lisinopril 10 mg tablet 10 mg PO DAILY 08/17/22 11/20/23 tiotropium bromide 2.5 2.5 mcg inhalation DIRECTED 03/10/23 11/20/23 mcg/actuation mist for inhalation (Spiriva Respimat) Allergies Allergy/AdvReac Type Severity Reaction Status Date / Time No Known Allergies Allergy Verified 10/13/23 14:16 Review of Systems Review of Systems: Pertinent positives per HPI. Patient denies any fever, chills, rash, visual changes, dizziness, shortness of breath, chest pain, palpitations, nausea, vomiting, diarrhea, constipation, abdominal pain, or any urinary issues. 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 Smoking packs per day: 1.5 Smoking cigarettes per day: 30.0 Years smoked: 30 Smoking pack-years: 45.00 Smoking status: Current every day smoker Tobacco type: cigarettes Alcohol intake: current Substance use: current Substance use type: does not use and opiates Last use: RA pain Living arrangements: with family Gender identity (if verbalized by the patient): Female Comments At the time of my signature, I reviewed and agree with the nursing past medical, surgical, social, and family history. There is no relevant family history pertinent to the patient complaint. Exam Narrative: General: Well-developed, well nourished, in no apparent distress Head: Normocephalic, atraumatic Eyes: Pupils equally round and reactive to light bilaterally, EOM intact, sclera and conjunctive clear, no discharge, lids normal Ears: TMs intact and congested, ear canals clear, no drainage, grossly hearing normal. Nose: Nares patent, yellow nasal discharge, moderate inflammation maxillary sinus tenderness. Mouth: Oral pharynx without lesions or masses, good dentition, MMM. Postnasal drip Neck: Supple, trachea midline, no enlargement of anterior or posterior cervical nodes, no thyroid masses or goiter palpable. Cardio: Regular rate and rhythm, s1 and s2 normal, no murmur appreciated. Resp: Clear to auscultation bilaterally, no rhonchi, rales, wheezing or rubs Course Course Emergency Course: Portions of this record may have been created with voice recognition software. Level of Care: Express Care Visit Vital Signs Vital signs: Vital Signs Temperature 37.2 C 09/22/24 08:59 Pulse Rate 84 09/22/24 08:59 Respiratory Rate 16 09/22/24 08:59 Blood Pressure 154/113 H 09/22/24 08:59 Pulse Oximetry 99 09/22/24 08:59 Oxygen Delivery Room Air 09/22/24 08:59 Temperature 37.2 C 09/22/24 08:59 Pulse Rate 84 09/22/24 08:59 Respiratory Rate 16 09/22/24 08:59 Blood Pressure 154/113 H 09/22/24 08:59 Pulse Oximetry 99 09/22/24 08:59 Oxygen Delivery Room Air 09/22/24 08:59 Vital signs reviewed MDM - URI/Sore Throat MDM Narrative Medical decision making narrative: At the time of visit patient is resting comfortably on the exam table. Patient appears to be nontoxic. Plan: I suspect patient has acute bacterial rhinosinusitis. Prescription for Augmentin and prednisone was sent to the pharmacy. Supportive measures were discussed with the patient and they voiced understanding discharge instructions and agrees to treatment plan. Return precautions reviewed Differential Diagnosis Differential diagnosis: Likely upper respiratory infection, otitis media, sinusitis, viral infection, bronchitis, influenza, pharyngitis and other (COVID) Discharge Plan Discharge Clinical Impression: Acute bacterial rhinosinusitis Patient Disposition: Home, Self-Care Condition: Stable Instructions: Antibiotic Form, Rhinosinusitis (ED) Additional Instructions: Take prescription medications only as prescribed-Augmentin and prednisone Increase fluids and stay well hydrated Tylenol/motrin for pain/fever Flonase and OTC antihistamines as directed Vicks vapor rub to open sinuses Sinus rinses for congestion Cepacol spray, cough drops, throat lozenges, warm tea with honey/lemon, gargle salt water to soothe throat BRAT diet for diarrhea Clear liquids x 24 hours then advance as tolerated for nausea/vomiting Go to the ED if you develop a worsening in your condition- high fever not controlled by Tylenol or Motrin, dehydration, weakness, lethargy, shortness of breath, or chest pain. Follow up with your PCP in 3-5 days if symptoms persist. Prescriptions: New amoxicillin-pot clavulanate 875-125 mg tablet 1 tablet PO Q12H 10 Days Qty: 20 0RF prednisone 20 mg tablet 40 mg PO DAILY 5 Days Qty: 10 0RF No Action (DME) Aerochamber MV Spacer See Rx Instructions .Route Qty: 1 0RF Rx Instructions: As directed albuterol sulfate 90 mcg/actuation HFA aerosol inhaler 2 puff inhalation QID PRN (Reason: Shortness Of Breath Or Wheezing) Rx Instructions: which ever is covered with insurance amoxicillin-pot clavulanate 875-125 mg tablet 1 tablet PO Q12H 10 Days Qty: 20 0RF prednisone 20 mg tablet 40 mg PO DAILY 5 Days Qty: 10 0RF lisinopril 10 mg tablet 10 mg PO DAILY Spiriva Respimat 2.5 mcg/actuation mist 2.5 mcg INHALATION DIRECTED dextroamphetamine-amphetamine [Adderall] 20 mg tablet 30 mg PO DAILY Humira(CF) Pen 40 mg/0.4 mL pen injector kit 40 mg SUBCUT DIRECTED Follow-up/Referrals: Gopal,ALEXUS Alonso [Primary Care Provider] - Time of Disposition: 09:06 Quality NIHSS Nursing Documentation ED NIHSS nursing documentation: reviewed/agree
[2024-09-22 08:59] VITALS: BP 154/113; PULSE 84; RESP 16; TEMP 37.2; O2SAT 99
== END 2024-09-22 09:11 | disposition home or self-care (01) ==
PROVIDERS: Emergency Provider Nurse Practitioner Family; PCP Family Medicine
DX: J01.90 Acute sinusitis, unspecified (principal); F17.210 Nicotine dependence, cigarettes, uncomplicated; F98.8 Other specified behavioral and emotional disorders with onset usually occurring in childhood and adolescence; E06.3 Autoimmune thyroiditis; M06.9 Rheumatoid arthritis, unspecified
CPT/HCPCS: 99213; G0463

== ENCOUNTER 2025-01-14 10:09 | Emergency (ER) | payer OTHER, SELFPAY ==
--- NOTE | 2025-01-14 10:12 | ED.URI ---
HPI - URI/Sore Throat General Chief Complaint: Upper Respiratory Infection Stated Complaint: Congested Time Seen by Provider: 01/14/25 10:12 Source: patient Mode of arrival: ambulatory Limitations: no limitations History of Present Illness HPI Narrative: Keturah is a 60-year-old female patient presenting to the clinic today with complaints of sinus congestion, headache, cough, and dental pain. She reports symptoms started 2 weeks ago. It just developed gingival swelling and pain this morning to the lower jaw. No fevers, chills, body aches. MD elicited complaint: sore throat and nasal congestion Related Data Home Medications ?Medication ?Instructions ?Recorded ?Confirmed ?Last Taken ?Type dextroamphetamine-amphetamine 20 30 mg PO DAILY 07/05/21 09/22/24 Unknown History mg tablet (Adderall) adalimumab 40 mg/0.4 mL 40 mg subcut DIRECTED 09/13/21 09/22/24 Unknown History subcutaneous pen kit (Humira(CF) Pen) albuterol sulfate 90 mcg/actuation 2 puff inhalation QID PRN 06/15/22 09/22/24 Unknown History aerosol inhaler Shortness Of Breath Or Wheezing lisinopril 10 mg tablet 10 mg PO DAILY 08/17/22 09/22/24 Unknown History tiotropium bromide 2.5 2.5 mcg inhalation DIRECTED 03/10/23 09/22/24 Unknown History mcg/actuation mist for inhalation (Spiriva Respimat) abatacept 125 mg/mL subcutaneous mg subcut 01/14/25 Unknown History syringe (Orencia) alendronate 70 mg tablet mg PO 01/14/25 Unknown History atorvastatin 20 mg tablet mg 01/14/25 Unknown History dextroamphetamine-amphetamine 30 01/14/25 Unknown History mg tablet ergocalciferol (vitamin D2) 1,250 01/14/25 Unknown History mcg (50,000 unit) capsule etanercept 50 mg/mL (1 mL) mg subcut 01/14/25 Unknown History subcutaneous syringe (Enbrel) fluticasone furoate 100 inhalation 01/14/25 Unknown History mcg/actuation blister powder for inhalation (Arnuity Ellipta) Allergies Allergy/AdvReac Type Severity Reaction Status Date / Time No Known Allergies Allergy Verified 01/14/25 10:11 Review of Systems Review of Systems: Pertinent positives per HPI. Patient denies any fever, chills, rash, visual changes, dizziness, shortness of breath, chest pain, palpitations, nausea, vomiting, diarrhea, constipation, abdominal pain, or any urinary issues. 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 Smoking packs per day: 1.5 Smoking cigarettes per day: 30.0 Years smoked: 30 Smoking pack-years: 45.00 Smoking status: Current every day smoker Tobacco type: cigarettes Alcohol intake: current Substance use: current Substance use type: does not use and opiates Last use: RA pain Living arrangements: with family Gender identity (if verbalized by the patient): Female Comments At the time of my signature, I reviewed and agree with the nursing past medical, surgical, social, and family history. There is no relevant family history pertinent to the patient complaint. Exam Narrative: General: Well-developed, well nourished, in no apparent distress Head: Normocephalic, atraumatic Eyes: Pupils equally round and reactive to light bilaterally, EOM intact, sclera and conjunctive clear, no discharge, lids normal Ears: TMs intact and congested, ear canals clear, no drainage, grossly hearing normal. Nose: Nares patent, yellow nasal discharge, moderate inflammation, maxillary and frontal sinus tenderness. Mouth: Oral pharynx without lesions or masses, poor dentition, swelling of the lower gingiva and tender to palpate, MMM. Neck: Supple, trachea midline, no enlargement of anterior or posterior cervical nodes, no thyroid masses or goiter palpable. Cardio: Regular rate and rhythm, s1 and s2 normal, no murmur appreciated. Resp: Clear to auscultation bilaterally, no rhonchi, rales, wheezing or rubs Course Course Emergency Course: Portions of this record may have been created with voice recognition software. Level of Care: Express Care Visit Vital Signs Vital signs: Vital signs reviewed MDM - URI/Sore Throat MDM Narrative Medical decision making narrative: At the time of visit patient is resting comfortably on the exam table. Patient appears to be nontoxic. Plan: I suspect patient has acute bacterial rhinosinusitis and gingivitis. Prescription for prednisone and Augmentin was sent to the pharmacy. Prescription for Diflucan was also sent to the pharmacy as patient does suffer from yeast infections when taking antibiotics. Supportive measures were discussed with the patient and they voiced understanding discharge instructions and agrees to treatment plan. Return precautions reviewed Differential Diagnosis Differential diagnosis: Likely upper respiratory infection, otitis media, sinusitis, viral infection, bronchitis, influenza, pharyngitis and other (COVID) Discharge Plan Discharge Clinical Impression: Acute bacterial rhinosinusitis, Gingivitis Patient Disposition: Home, Self-Care Condition: Stable Instructions: Antibiotic Form, Gingivitis (ED), Rhinosinusitis (ED) Additional Instructions: Take prescription medications only as prescribed-Augmentin, prednisone, and Diflucan Increase fluids and stay well hydrated Tylenol/motrin for pain/fever Flonase and OTC antihistamines as directed Vicks vapor rub to open sinuses Sinus rinses for congestion Cepacol spray, cough drops, throat lozenges, warm tea with honey/lemon, gargle salt water to soothe throat BRAT diet for diarrhea Clear liquids x 24 hours then advance as tolerated for nausea/vomiting Go to the ED if you develop a worsening in your condition- high fever not controlled by Tylenol or Motrin, dehydration, weakness, lethargy, shortness of breath, or chest pain. Follow up with your PCP in 3-5 days if symptoms persist. Patient Language: Mauritanian Prescriptions: New fluconazole 150 mg tablet 150 mg PO ONCE Qty: 2 0RF Rx Instructions: as a single dose. May repeat in 72 hours if needed. prednisone 20 mg tablet 40 mg PO DAILY 5 Days Qty: 10 0RF amoxicillin-pot clavulanate 875-125 mg tablet 1 tablet PO Q12H 10 Days Qty: 20 0RF No Action (DME) Aerochamber MV Spacer See Rx Instructions .Route Qty: 1 0RF Rx Instructions: As directed albuterol sulfate 90 mcg/actuation HFA aerosol inhaler 2 puff inhalation QID PRN (Reason: Shortness Of Breath Or Wheezing) Rx Instructions: which ever is covered with insurance atorvastatin 20 mg tablet alendronate 70 mg tablet PO dextroamphetamine-amphetamine 30 mg tablet ergocalciferol (vitamin D2) 1,250 mcg (50,000 unit) capsule Enbrel 50 mg/mL (1 mL) syringe SUBCUT Orencia 125 mg/mL syringe SUBCUT Arnuity Ellipta 100 mcg/actuation blister with device INHALATION lisinopril 10 mg tablet 10 mg PO DAILY Spiriva Respimat 2.5 mcg/actuation mist 2.5 mcg INHALATION DIRECTED dextroamphetamine-amphetamine [Adderall] 20 mg tablet 30 mg PO DAILY Humira(CF) Pen 40 mg/0.4 mL pen injector kit 40 mg SUBCUT DIRECTED Follow-up/Referrals: Gopal,ALEXUS Alonso [Primary Care Provider] - Quality NIHSS Nursing Documentation ED NIHSS nursing documentation: reviewed/agree
[2025-01-14 10:14] VITALS: BP 162/97; PULSE 77; RESP 20; TEMP 36.8; O2SAT 99
== END 2025-01-14 10:40 | disposition home or self-care (01) ==
PROVIDERS: Emergency Provider Nurse Practitioner Family; PCP Family Medicine
DX: J01.90 Acute sinusitis, unspecified (principal); K05.10 Chronic gingivitis, plaque induced; F17.210 Nicotine dependence, cigarettes, uncomplicated; F98.8 Other specified behavioral and emotional disorders with onset usually occurring in childhood and adolescence; E06.3 Autoimmune thyroiditis; M06.9 Rheumatoid arthritis, unspecified
CPT/HCPCS: 99213; G0463

== ENCOUNTER 2025-08-25 19:01 | Emergency (ER) | payer OTHER, SELFPAY ==
[2025-08-25 19:07] VITALS: BP 127/87; PULSE 76; RESP 18; TEMP 36.9; O2SAT 98
--- NOTE | 2025-08-25 19:20 | ED.FEMALEGU ---
HPI - Female Genitourinary General Chief complaint: Urogenital-Female Stated complaint: UTI Time Seen by Provider: 08/25/25 19:15 Source: patient, RN notes reviewed and old records reviewed Mode of arrival: ambulatory Limitations: no limitations History of Present Illness HPI Narrative: 60 year old female who presents to [facility] care with complaints of not feeling well for the past 2 weeks. Patient reports that she has had some back pain, has had increased fatigue, some nausea, dizziness, has pressure and some burning in perineal area. Patient reports that she saw her PCP yesterday and had some labs which showed some blood in her urine and states that her HGBA1C was below 6.0, and she is to have repeat urine in 2 weeks. Patient reports that she has felt worse today, denies any fever. Patient does have history of rheumatoid arthritis. patient reports tht she drinks about 60oz of water daily MD elicited complaint: UTI Pertinent past history: other (rheumatoid arthritis) Onset (ago): week(s) (2 weeks increased symptoms past 2 days.) Location of symptoms: perineum and low back Severity scale (1-10): 5 Quality of pain: other (pressure) Consistency: progressively worsening Treatment prior to arrival: none Related Data Home Medications ?Medication ?Instructions ?Recorded ?Confirmed ?Last Taken ?Type dextroamphetamine-amphetamine 20 30 mg PO DAILY 07/05/21 09/22/24 Unknown History mg tablet (Adderall) adalimumab 40 mg/0.4 mL 40 mg subcut DIRECTED 09/13/21 09/22/24 Unknown History subcutaneous pen kit (Humira(CF) Pen) albuterol sulfate 90 mcg/actuation 2 puff inhalation QID PRN 06/15/22 09/22/24 Unknown History aerosol inhaler Shortness Of Breath Or Wheezing lisinopril 10 mg tablet 10 mg PO DAILY 08/17/22 09/22/24 Unknown History tiotropium bromide 2.5 2.5 mcg inhalation DIRECTED 03/10/23 09/22/24 Unknown History mcg/actuation mist for inhalation (Spiriva Respimat) abatacept 125 mg/mL subcutaneous mg subcut 01/14/25 Unknown History syringe (Orencia) alendronate 70 mg tablet mg PO 01/14/25 Unknown History atorvastatin 20 mg tablet mg 01/14/25 Unknown History dextroamphetamine-amphetamine 30 01/14/25 Unknown History mg tablet ergocalciferol (vitamin D2) 1,250 01/14/25 Unknown History mcg (50,000 unit) capsule etanercept 50 mg/mL (1 mL) mg subcut 01/14/25 Unknown History subcutaneous syringe (Enbrel) fluticasone furoate 100 inhalation 01/14/25 Unknown History mcg/actuation blister powder for inhalation (Arnuity Ellipta) Allergies Allergy/AdvReac Type Severity Reaction Status Date / Time No Known Allergies Allergy Verified 08/25/25 19:10 Review of Systems Review of Systems: CONSTITUTIONAL: Denies fever, chills, or sweats. CARDIOVASCULAR: Denies chest pain, palpitations, or edema. RESPIRATORY: Denies cough or dyspnea. GASTROINTESTINAL: Denies abdominal pain, nausea, vomiting, or diarrhea. GENITOURINARY: Reports dysuria, no frequency, urgency. Denies flank pain positive for low back pain no visible hematuria. SKIN: Denies rash or itching. MUSCULOSKELETAL: reports low back pain or myalgia. 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 ADD (attention deficit disorder) UTI (urinary tract infection) Rheumatoid arthritis Adrenal insufficiency Surgical History Surgical History History of arthroscopic surgery of shoulder left History of hysterectomy History of arthroscopic surgery of shoulder left No pertinent past surgical history History of nasal surgery related to fracture History of arthroscopic surgery of shoulder left History of hysterectomy Social History Social History Smoking packs per day: 1.5 Smoking cigarettes per day: 30.0 Years smoked: 30 Smoking pack-years: 45.00 Smoking status: Current every day smoker Tobacco type: cigarettes Alcohol intake: current Substance use: current Substance use type: does not use and opiates Last use: RA pain Living arrangements: with family Gender identity (if verbalized by the patient): Female Comments At time of signature, agree with nursing past medical, surgical, social and family history. There is no relevant family history pertinent to the presenting complaint Exam Narrative: GENERAL: Well-appearing, well-nourished, and in no acute distress. HEAD: Normocephalic, atraumatic. NECK: Supple.no lymphadenopathy CHEST: Clear to auscultation. No respiratory distress. SAO2 98% on room air HEART: Regular rate and rhythm. No murmur heard. Normal peripheral pulses. ABDOMEN: Soft, nontender, nondistended, normal active bowel sounds. No CVA tenderness, reports low back pain and perineal pressure and burning with urination EXTREMITIES: Normal range of motion. No edema. SKIN: Warm, dry, no rash. NEURO: No focal deficits. Alert and oriented x3. Course Course Emergency Course: Patient is aware of diagnosis, understands and agrees to treatment plan.? Anticipatory guidance given.? Patient agrees to follow-up as directed and is aware of reasons to seek care at the emergency department. Portions of this record may have been created with voice recognition software Level of Care: Express Care Visit Vital Signs Vital signs: Vital Signs Temperature 36.9 C 08/25/25 19:07 Pulse Rate 76 08/25/25 19:07 Respiratory Rate 18 08/25/25 19:07 Blood Pressure 127/87 08/25/25 19:07 Pulse Oximetry 98 08/25/25 19:07 Oxygen Delivery Room Air 08/25/25 19:07 Temperature 36.9 C 08/25/25 19:07 Pulse Rate 76 08/25/25 19:07 Respiratory Rate 18 08/25/25 19:07 Blood Pressure 127/87 08/25/25 19:07 Pulse Oximetry 98 08/25/25 19:07 Oxygen Delivery Room Air 08/25/25 19:07 reviewed MDM - Female Genitourinary MDM Narrative Medical decision making narrative: Exam findings and UA show no acute concerns or changes; patient is non-toxic appearing and is in no distress.? Patient is appropriate for outpatient treatment and follow-up. Patient instructed if increase in back pain or any increase blood in urine go to ED for further evaluation or increased concerns GO TO ED Differential Diagnosis Differential diagnosis: Likely urinary tract infection (symptoms), cystitis and other (dysuria, nausea, headache, back pain ) Medical Records Attestation: I reviewed the patient's medical records. Lab Data Attestation: I reviewed the patient's lab results. Lab results narrative: urine dip: Glucose negative, bilirubin negative, ketone negative specific gravity 1.020 blood trace lysed pH 6.5 protein negative urobilinogen 0 2 nitrate negative leukocyte negative Labs: Lab Results 08/25/25 Range/Units 19:24 POC Urine Color Yellow POC Urine Clarity Clear POC Urine pH 6.5 POC Ur Specif [place] 1.020 POC Urine Protein Negative (Negative) POC Ur Glucose (UA) Negative (Negative) POC Urine Ketones Negative (Negative) POC Urine Blood Trace (Negative) POC Urine Nitrite Negative (Negative) POC Urine Bilirubin Negative (Negative) POC Urine Urobilinogen 0.2 POC U Leukocyte Esteras Negative (Negative) reviewed Critical Care Time Critical Care Time Critical Care Time: No Discharge Plan Discharge Clinical Impression: Symptoms of urinary tract infection, Nausea Patient Disposition: Home Condition: Stable Instructions: Antibiotic Form, Dysuria (ED) Additional Instructions: Increase fluids especially cranberry juice and water Avoid caffeine and carbonated beverages Antibiotic as directed Tylenol/ibuprofen for pain or fever Follow-up with her primary care provider if further problems or concerns Recheck if you have fever over 101, nausea and vomiting. If your symptoms persist, change or worsen significantly before you can contact your personal physician then please, without delay, go to the emergency department for further evaluation. Follow-up with PCP in 7-10 days or sooner if needed Follow up with PCP soon in regards to your blood pressure which is elevated above threshold for referral. Blood pressure above 120/80 may indicate pre-hypertension. 127/87 elevation Urine culture sent Patient has follow up urine in 2 weeks ordered by her PCP Patient Language: Ghanaian Prescriptions: New amoxicillin-pot clavulanate 875-125 mg tablet 1 tablet PO Q12H Qty: 14 0RF Rx Instructions: take with food and encouraged to take probiotic or eat activia yogurt while taking this medication ondansetron 4 mg tablet,disintegrating 4 mg PO Q6H PRN (Reason: nausea and vomiting) Qty: 20 0RF Rx Instructions: which ever preparation is covered by insurance No Action (DME) Aerochamber MV Spacer See Rx Instructions .Route Qty: 1 0RF Rx Instructions: As directed albuterol sulfate 90 mcg/actuation HFA aerosol inhaler 2 puff inhalation QID PRN (Reason: Shortness Of Breath Or Wheezing) Rx Instructions: which ever is covered with insurance atorvastatin 20 mg tablet alendronate 70 mg tablet PO dextroamphetamine-amphetamine 30 mg tablet ergocalciferol (vitamin D2) 1,250 mcg (50,000 unit) capsule Enbrel 50 mg/mL (1 mL) syringe SUBCUT Orencia 125 mg/mL syringe SUBCUT Arnuity Ellipta 100 mcg/actuation blister with device INHALATION lisinopril 10 mg tablet 10 mg PO DAILY Spiriva Respimat 2.5 mcg/actuation mist 2.5 mcg INHALATION DIRECTED dextroamphetamine-amphetamine [Adderall] 20 mg tablet 30 mg PO DAILY Humira(CF) Pen 40 mg/0.4 mL pen injector kit 40 mg SUBCUT DIRECTED Follow-up/Referrals: Gopal,ALEXUS Alonso [Primary Care Provider, Unknown] Time of Disposition: 19:41 Quality [place] Scale Eyes: Open Verbal: Oriented and Alert Motor: Follows Commands [place] Total Score: 15
[2025-08-25 19:27] LABS: EDUAAPPEAR Clear; EDUABILI Negative (Negative); EDUABLOOD Trace (Negative); EDUACOLOR1 Yellow; EDUAGLUCOSE Negative (Negative); EDUAKETONE Negative (Negative); EDUALEUKO Negative (Negative); EDUANITRATE Negative (Negative); EDUAPH 6.5; EDUAPROTEIN Negative (Negative); EDUASPGRAVITY 1.020; EDUAUROBILI 0.2
== END 2025-08-25 19:57 | disposition home or self-care (01) ==
PROVIDERS: Emergency Provider Registered Nurse; PCP Family Medicine
DX: R10.20 Pelvic and perineal pain unspecified side (principal); R53.83 Other fatigue; M54.50 Low back pain, unspecified; R11.0 Nausea; F17.210 Nicotine dependence, cigarettes, uncomplicated; M06.9 Rheumatoid arthritis, unspecified; E06.3 Autoimmune thyroiditis; F98.8 Other specified behavioral and emotional disorders with onset usually occurring in childhood and adolescence
CPT/HCPCS: 81003; 87086; 99213; G0463